=== PATIENT | male | born 1965 | race Caucasian/White ===

== ENCOUNTER 2020-09-08 15:45 | Inpatient (IN) ==
--- OUTSIDE RECORDS SUMMARY | 2020-09-08 15:49 | External Medical Summary | Continuity of Care Document ---
:1965 Author Name Donal Martinez, Provider Address Unavailable Unavailable , Care Team Providers Name Role Phone Donal Martinez, Urology Unavailable [email or web address] Unavailable Unavailable Problems Active medical history not documented Allergies and Adverse Reactions Allergy history not documented Medications Medications not documented Procedures Procedures not documented Immunizations Immunizations not documented Plan of Treatment Planned Observations Planned Goals not documented Results No Known Results Results not documented
[2020-09-08] MEDS ORDERED: MoRPHine SULFATE 4 MG/ML 1 ML CARP\\VIAL IV PRN ×2 (15:54→19:43)
[2020-09-08] MEDS ORDERED: SODIUM CHLORIDE 0.9% 500 ML IV SCH (16:00)
--- NOTE | 2020-09-08 16:13 | Emergency Department Note ---
Impression & Plan Closed fracture of right fibula and tibia, Abnormal ECG ED Provider Note NAME: DEBBIE DOS SANTOS AGE: 54 SEX: M : 1965 ARRIVES VIA: [employer] INFORMANT: Patient, the [employer] crew ED PROVIDER(S): Klaus Cerna DO CHIEF COMPLAINT: Leg pain HPI: The patient is a 54-year-old male who presented to the emergency department for an evaluation after a fall. The patient fell in the [place] while cross- country skiing. He had very severe pain in his right lower extremity to the point where he could not stand. The patient called 911 and he was evaluated initially by the local prehospital personnel. They felt the patient could not ambulate and they were very concerned that the patient was developing hypothermia. Because of the location of where the injury occurred they felt the patient was a candidate for helicopter transport to a facility. Because of weather the patient was diverted to our facility. Medic command was called by the prehospital personnel. The patient was brought to our facility with an isolated right lower extremity injury. He denies having any head injury or neck pain. He has no back pain. He denies having any weakness in the arms. The patient states he has very severe pain in his right lower extremity he localizes the pain to right below the knee and extending into the ankle. He states he has no foot pain. He was wearing specialized shoes that he was wearing at the time. The patient states his pain is moderate to severe. He was treated with fentanyl prior to arrival. ROS: See above HPI for pertinent positives & negatives. A total of 10 systems reviewed and were otherwise negative. PAST MEDICAL HISTORY: See Below PAST SURGICAL HISTORY: See Below FAMILY HISTORY: See Below SOCIAL HISTORY: See Below HOME MEDICATIONS: See Below ALLERGIES: See Below VITALS: See Below PHYSICAL EXAMINATION: GENERAL: The patient is awake and alert. He is somewhat anxious appearing and appears to be in significant pain. EYES: The conjunctivae are clear. The pupils are round and reactive. EARS, NOSE, MOUTH AND THROAT: The nose is without any evidence of any deformity. Mucous membranes are moist. Tongue is midline. NECK: The neck is nontender and supple. RESPIRATORY: Normal respiratory effort is noted there is no evidence of wheezing rhonchi or rales CARDIOVASCULAR: Regular rate and rhythm noted there no murmurs rubs or gallops normal S1 normal S2. GASTROINTESTINAL: The abdomen is soft. Abdomen is nontender. BACK: No midline tenderness or or step-off noted range of motion in flexion extension as well as rotation no signs of muscle spasm noted MUSCULOSKELETAL/EXTREMITIES: There is significant deformity over the mid shaft of the right lower extremity. Pulses are symmetric in both feet. There is no tenderness over the right knee or the right foot. Pain with palpation is noted. SKIN: There is no obvious evidence of any rash. There are no petechiae, pallor or cyanosis noted. NEUROLOGIC: Patient is awake alert and oriented x 3. MEDICAL DECISION MAKING: The patient is a 54-year-old male who presented to the emergency department via [facility] from the scene for an evaluation of a significant right lower extremity injury. The patient was treated with pain medication. He was treated with splinting. He was reevaluated multiple times. I discussed the patient's laboratory and radiographic studies with him. I also discussed his case with the on-call orthopedic physician. I also discussed his case with the on-call [facility] group. They will evaluate the patient in the emergency department for further management and disposition. Triage Nursing notes reviewed. Prior medical records reviewed Vital Signs: reviewed and remarkable for elevated blood pressure. Differential diagnosis: Fracture, subluxation, dislocation, contusion, ligamentous injury, neurovascular, compartment syndrome, rhabdomyolysis, as well as other pathologies. ER treatment provided: See below Diagnostics interpreted by me: ECG: EKG was obtained in the emergency department. My interpretation is normal sinus rhythm at 82 bpm. There was no ectopy. Nonspecific T wave abnormalities were noted. No previous tracing was available. There was no ectopy. Cardiac Monitoring: An order was placed for continuous cardiac monitoring. The monitor shows a rate of 85 bpm with sinus rhythm. Laboratory studies: As stated above and show below. Imaging studies: See below Consultation(s): 1700: I discussed this case with Dr. Saeed who is on-call for orthopedics. He was able to review the films. Likely the patient will be a candidate for operative management tomorrow. 1715: I discussed this case with Iliana who is on-call for the [facility] group. They will evaluate the patient in the emergency department for further management and disposition. Past Med/Surg History Medical History (Updated 09/08/20 @ 19:34 by Sherlyn García PA-C) GERD (gastroesophageal reflux disease) History of gout Surgical History (Updated 09/08/20 @ 17:45 by Sherlyn García PA-C) H/O chest tube placement pneumothorax as teenager Family History (Updated 09/08/20 @ 18:03 by Sherlyn García PA-C) Father Colonic polyp Hypertension Diabetes Mother FH: multiple myeloma Social History (Updated 09/08/20 @ 19:31 by Sherlyn García PA-C) Smoking Status: Never smoker Hx Alcohol Use: Yes (2 drinks a day) Alcohol type: beer and wine Hx Substance Use: No Preferred Language: Lithuanian Feels Safe at Home: Yes Allergies Allergies Allergy/AdvReac Type Severity Reaction Status Date / Time Penicillins Allergy Hives Verified 09/08/20 18:21 Home Meds Home Medications Medication Instructions Recorded Confirmed allopurinol 300 mg PO DAILY 09/08/20 09/08/20 omeprazole 20 mg PO DAILY 09/08/20 09/08/20 Results & Data (ED) Vital Signs Vital Signs - 24 hr 09/08/20 15:45 09/08/20 15:54 09/08/20 15:56 Temperature 37.4 C Temperature Source Oral Pulse Rate 81 81 78 Pulse Rate from SpO2 Sensor 78 Pulse Rhythm Regular Regular Respiratory Rate 13 13 14 Respiratory Effort / Characteristics Non-Labored Spontaneous Respiratory Depth Normal Respiratory Pattern Regular Blood Pressure 184/109 H 184/109 H Blood Pressure Mean 134 134 Pulse Oximetry 96 96 97 Oxygen Delivery Method Room Air Room Air Sepsis Recent Fever Within 48 Hours No Sepsis New/Unexplained Change in Mental Status No Sepsis Action Taken by Nursing No Action Required 09/08/20 16:00 09/08/20 16:04 09/08/20 16:30 Temperature Temperature Source Pulse Rate 82 86 87 Pulse Rate from SpO2 Sensor 81 87 87 Pulse Rhythm Respiratory Rate 16 14 15 Respiratory Effort / Characteristics Respiratory Depth Respiratory Pattern Blood Pressure 167/117 H 163/98 H 154/99 H Blood Pressure Mean 133 119 117 Pulse Oximetry 95 95 94 Oxygen Delivery Method Sepsis Recent Fever Within 48 Hours Sepsis New/Unexplained Change in Mental Status Sepsis Action Taken by Nursing 09/08/20 17:00 09/08/20 17:01 Temperature Temperature Source Pulse Rate 77 75 Pulse Rate from SpO2 Sensor 71 76 Pulse Rhythm Respiratory Rate 12 20 Respiratory Effort / Characteristics Respiratory Depth Respiratory Pattern Blood Pressure 153/93 H Blood Pressure Mean 113 Pulse Oximetry 93 95 Oxygen Delivery Method Sepsis Recent Fever Within 48 Hours Sepsis New/Unexplained Change in Mental Status Sepsis Action Taken by Alf Medications Current Medication List: was personally reviewed by me Laboratory Data Attestation: I reviewed the patient's lab results. Result diagrams: 09/08/20 16:10 09/08/20 16:10 Lab Results 09/08/20 09/08/20 09/08/20 Range/Units 16:10 16:10 16:10 WBC 14.38 H (4.8-10.8) K/uL RBC 4.87 (4.7-6.1) M/uL Hgb 15.0 (14.0-18.0) g/dL Hct 42.2 (42-52) % MCV 86.7 (80-100) fL MCH 30.8 (25-34) pg MCHC 35.5 (32-36) g/dL RDW Std Deviation 42.0 (36.4-46.3) fL RDW Coeff of Tristan 13.4 (11.5-14.5) % Plt Count 170 (130-400) K/uL MPV 10.8 H (7.4-10.4) fL Immature Gran % (Auto) 0.2 % Neut % (Auto) 88.7 % Lymph % (Auto) 7.1 % [place] % (Auto) 3.8 % Eos % (Auto) 0.1 % Baso % (Auto) 0.1 % Neut # (Auto) 12.76 H (1.4-6.5) K/uL Lymph # (Auto) 1.02 L (1.2-3.4) K/uL [place] # (Auto) 0.54 (0.11-0.59) K/uL Eos # (Auto) 0.02 (0-0.5) K/uL Baso # (Auto) 0.01 (0-0.2) K/uL Immature Gran # (Auto) 0.03 H (0.00-0.02) K/uL PT 10.9 (9.0-12.0) Seconds INR 1.0 (0.9-1.1) APTT 25.5 (21.0-31.0) Seconds PTT Ratio 0.9 Sodium 141 (136-145) mmol/L Potassium 3.7 (3.5-5.1) mmol/L Chloride 109 H (98-107) mmol/L Carbon Dioxide 23 (21-32) mmol/L Anion Gap 9.0 (3-11) BUN 21 H (7-18) mg/dl Creatinine 1.18 (0.6-1.4) mg/dl Est Cr Clr Drug Dosing 79.7 ml/min Est GFR ( Amer) 81.2 Est GFR (Non-Af Amer) 70.0 BUN/Creatinine Ratio 17.7 (10-20) Glucose 110 H (70-99) mg/dl Calcium 8.6 (8.5-10.1) mg/dl Total Bilirubin 1.0 (0.2-1) mg/dl AST 33 (15-37) U/L ALT 75 (12-78) U/L Alkaline Phosphatase 78 (45-117) U/L Troponin I 0.034 (0-0.045) ng/ml Total Protein 7.5 (6.4-8.2) gm/dl Albumin 4.2 (3.4-5.0) gm/dl Globulin 3.3 (2.5-4.0) gm/dl Albumin/Globulin Ratio 1.3 (0.9-2) Lipase 68 L (73-393) U/L COVID-19 Eval Order SARS-CoV-2, RNA, NAAT (NEGATIVE) 09/08/20 09/08/20 Range/Units 16:35 16:35 WBC (4.8-10.8) K/uL RBC (4.7-6.1) M/uL Hgb (14.0-18.0) g/dL Hct (42-52) % MCV (80-100) fL MCH (25-34) pg MCHC (32-36) g/dL RDW Std Deviation (36.4-46.3) fL RDW Coeff of Tristan (11.5-14.5) % Plt Count (130-400) K/uL MPV (7.4-10.4) fL Immature Gran % (Auto) % Neut % (Auto) % Lymph % (Auto) % [place] % (Auto) % Eos % (Auto) % Baso % (Auto) % Neut # (Auto) (1.4-6.5) K/uL Lymph # (Auto) (1.2-3.4) K/uL [place] # (Auto) (0.11-0.59) K/uL Eos # (Auto) (0-0.5) K/uL Baso # (Auto) (0-0.2) K/uL Immature Gran # (Auto) (0.00-0.02) K/uL PT (9.0-12.0) Seconds INR (0.9-1.1) APTT (21.0-31.0) Seconds PTT Ratio Sodium (136-145) mmol/L Potassium (3.5-5.1) mmol/L Chloride (98-107) mmol/L Carbon Dioxide (21-32) mmol/L Anion Gap (3-11) BUN (7-18) mg/dl Creatinine (0.6-1.4) mg/dl Est Cr Clr Drug Dosing ml/min Est GFR ( Amer) Est GFR (Non-Af Amer) BUN/Creatinine Ratio (10-20) Glucose (70-99) mg/dl Calcium (8.5-10.1) mg/dl Total Bilirubin (0.2-1) mg/dl AST (15-37) U/L ALT (12-78) U/L Alkaline Phosphatase (45-117) U/L Troponin I (0-0.045) ng/ml Total Protein (6.4-8.2) gm/dl Albumin (3.4-5.0) gm/dl Globulin (2.5-4.0) gm/dl Albumin/Globulin Ratio (0.9-2) Lipase (73-393) U/L COVID-19 Eval Order Covid19 [facility] SARS-CoV-2, RNA, NAAT NEGATIVE (NEGATIVE) Administered Medications Discontinued Medications Sodium Chloride (Nss) 500 mls @ 999 mls/hr IV .Q31M MARY Stop: 09/08/20 16:30 Last Infusion: 09/08/20 17:11 Dose: 0 mls/hr Documented by: [id number] Admin: 09/08/20 16:15 Dose: 999 mls/hr Documented by: [id number] Morphine Sulfate (Morphine Sulfate 4 Mg/Ml 1 Ml Carp\Vial) 4 mg IV Q15M PRN PRN Reason: Pain Stop: 09/22/20 15:53 Last Admin: 09/08/20 16:00 Dose: 4 mg Documented by: [id number] Imaging Data Radiologist's Impression: Patient: DEBBIE DOS SANTOS Admit Date: 09/08/20 MR#: [id number] Address1: [address] Acct ID:[id number] Address2: Date: 1965 [facility] Zip: [place] [address] Age: 54 Location: ED Sex: M Room/Bed: Att Phy: Diagnosis: LEG INJURY Bonnie Phy: Abdulkadir Way MD Service Date: 09/08/20 Fam Phy: Interpreting Phy: Juancho Gama MD Admit Phy: Ordering Phy: Klaus Cerna, cc: ~ RIGHT TIBIA AND FIBULA 2 VIEWS CLINICAL HISTORY: Fall. Skiing injury. FINDINGS: AP and crosstable lateral views of the right tibia and fibula are obtained. No prior studies are available for comparison at the time of dictation. The skeletal structures are well mineralized. There is a displaced spiral fracture of the proximal to mid shaft of the right fibula. There is anterior distraction of the distal fragment by 1.5 cm as well as mild overriding of the fragments. Additionally, there is a comminuted fracture of the distal tibial diaphysis. There is mild apex volar angulation of the fracture fragments as well as overriding of the fragments. There is dorsal displacement of the distal fragment by approximately 7 mm. Vertical lucency through the posterior tibial plafond seen on the lateral view likely represents overlying shadows. Fracture extension to the articular surface is not excluded. The knee and ankle joints are grossly maintained. Overlying soft tissue edema is noted. IMPRESSION: Right tibial and fibular fractures as above. Electronically signed by: Juancho Gama M.D. 09/08/2020 4:36 PM Dictated: 09/08/20 1630 Transcribed: 09/08/20 1630 Patient: DEBBIE DOS SANTOS Admit Date: 09/08/20 MR#: [id number] Address1: [address] Acct ID:[id number] Address2: Date: 1965 [facility] Zip: [place] [address] Age: 54 Location: ED Sex: M Room/Bed: Att Phy: Diagnosis: LEG INJURY Bonnie Phy: Abdulkadir Way MD Service Date: 09/08/20 [facility] Phy: Interpreting Phy: Juancho Gama MD Admit Phy: Ordering Phy: Klaus Cerna, DO cc: ~ SINGLE VIEW CHEST CLINICAL HISTORY: Atypical chest pain. FINDINGS: An AP, portable, upright chest radiograph is obtained. No prior studies are available for comparison at the time of dictation. The examination is degraded by portable technique, apical lordotic positioning, and patient rotation. The cardiomediastinal silhouette is unremarkable. The lungs and pleural spaces are clear. No pneumothorax is seen. The bony thorax is grossly intact. IMPRESSION: No active disease in the chest. ACT 112: Negative or not required by law. Electronically signed by: Juancho Gama M.D. 09/08/2020 5:02 PM Dictated: 09/08/201700 Transcribed: 09/08/201700 Blood Pressure Blood Pressure Findings: Elevated blood pressure Blood Pressure Disposition: further management by hospitalist Discharge Plan Visit Data Chief Complaint: Leg Injury/Pain Stated Complaint: LEG INJURY ED Provider: Klaus Cerna Discharge Problem: Closed fracture of right fibula and tibia, Abnormal ECG Patient Disposition: Being Evaluated by Hospitalist Condition: Good Discharge Instructions Interventions: ED Discharge Assessment Last Done: 09/08/20 19:15 Discharge Problem: Closed fracture of right fibula and tibia Qualifiers: Encounter type: initial encounter Qualified Code(s): S82.201A - Unspecified fracture of shaft of right tibia, initial encounter for closed fracture
[2020-09-08 16:29] LABS: Basophils # (auto) 0.01 K/uL (0-0.2); Basophils % (auto) 0.1 %; Eosinophils # (auto) 0.02 K/uL (0-0.5); Eosinophils % (auto) 0.1 %; Hematocrit (blood only) 42.2 % (42-52); Immature Granulocytes # (auto) 0.03 K/uL (0.00-0.02); Immature Granulocytes % (auto) 0.2 %; Lymphocytes # (auto) 1.02 K/uL (1.2-3.4); Lymphocytes % (auto) 7.1 %; Mean Corpuscular Hemoglobin 30.8 pg (25-34); Mean Corpuscular Hgb Conc 35.5 g/dL (32-36); Mean Corpuscular Volume 86.7 fL (80-100); Mean Platelet Volume 10.8 fL (7.4-10.4); Monocytes # (auto) 0.54 K/uL (0.11-0.59); Monocytes % (auto) 3.8 %; Neutrophils # (auto) 12.76 K/uL (1.4-6.5); Neutrophils % (auto) 88.7 %; Platelet Count 170 K/uL (130-400); RDW Coefficient of Variation 13.4 % (11.5-14.5); Red Blood Count 4.87 M/uL (4.7-6.1); White Blood Count 14.38 K/uL (4.8-10.8)
--- NOTE | 2020-09-08 16:38 | XRay Report ---
RIGHT TIBIA AND FIBULA 2 VIEWS CLINICAL HISTORY: Fall. Skiing injury. FINDINGS: AP and crosstable lateral views of the right tibia and fibula are obtained. No prior studie s are available for comparison at the time of dictation. The skeletal structures are well mineralized . There is a displaced spiral fracture of the proximal to mid shaft of the right fibula. There is ant erior distraction of the distal fragment by 1.5 cm as well as mild overriding of the fragments. Addit ionally, there is a comminuted fracture of the distal tibial diaphysis. There is mild apex volar angu lation of the fracture fragments as well as overriding of the fragments. There is dorsal displacement of the distal fragment by approximately 7 mm. Vertical lucency through the posterior tibial plafond seen on the lateral view likely represents overlying shadows. Fracture extension to the articular eloise face is not excluded. The knee and ankle joints are grossly maintained. Overlying soft tissue edema i s noted. IMPRESSION: Right tibial and fibular fractures as above. Electronically signed by: Juancho Gama M.D. 09/08/2020 4:36 PM
[2020-09-08 16:40] LABS: Partial Thromboplastin Ratio 0.9; Partial Thromboplastin Time 25.5 Seconds (21.0-31.0); Prothrombin Time 10.9 Seconds (9.0-12.0)
[2020-09-08 16:56] LABS: Albumin Level 4.2 gm/dl (3.4-5.0); BUN Creatinine Ratio 17.7 (10-20); Calcium 8.6 mg/dl (8.5-10.1); Creatinine Clr Calc Pharmacy 79.7 ml/min; Est GFR (African American) 81.2; Potassium 3.7 mmol/L (3.5-5.1)
[2020-09-08 17:01] LABS: Albumin Globulin Ratio 1.3 (0.9-2); Globulin 3.3 gm/dl (2.5-4.0); Total Protein 7.5 gm/dl (6.4-8.2); Troponin I 0.034 ng/ml (0-0.045)
--- NOTE | 2020-09-08 17:03 | XRay Report ---
SINGLE VIEW CHEST CLINICAL HISTORY: Atypical chest pain. FINDINGS: An AP, portable, upright chest radiograph is obtained. No prior studies are available for c omparison at the time of dictation. The examination is degraded by portable technique, apical lordoti c positioning, and patient rotation. The cardiomediastinal silhouette is unremarkable. The lungs and pleural spaces are clear. No pneumothorax is seen. The bony thorax is grossly intact. IMPRESSION: No active disease in the chest. ACT 112: Negative or not required by law. Electronically signed by: Juancho Gama M.D. 09/08/2020 5:02 PM
--- NOTE | 2020-09-08 17:45 | History & Physical Report ---
Date of Service September 08, 2020 Assessment & Plan (1) Closed fracture of right fibula and tibia: Pt is 54 y/o M with PMH gout presented to ER with c/o right leg pain after mechanical fall while cross country skiing today XRAY: Right tibial and fibular fractures RLE CT: displaced spiral fracture of the proximal to mid fibular shaft. Comminuted displaced fracture of the distal tibial metadiaphysis with intra- articular extension. Hemorrhage and soft tissue edema overlies the fracture si denice. -pt placed in posterior splint in ER -oxycodone, morphine prn pain -NPO midnight -Pt will need further workup for pre-op clearance -am labs -ortho consult, ER provider contacted ortho and are aware (2) Abnormal ECG: EKG with T wave inversions inferior leads. No prior EKG noted in outpatient [facility] or [facility] records Initial troponin: 0.034 Pt active at baseline without h/o SOB/CP -Repeat EKG in am -Will trend troponin -lipid panel, A1c in am -Consider echo per cardiology recommendations -Cardiology consult for assistance in pre-op clearance (3) Elevated blood pressure reading: BP's elevated in ER Likely related to acute pain Monitor and control pain. may need to consider BP agent if doesn't respond to pain control (4) History of gout: Continue allopurinol DVT Prophylaxis -SCD Full Code as per discussion with pt Follows with Dr Way for routine care Pt was seen and care coordinated with Dr Aquino. See addendum History of Present Illness Chief Complaint: Right Leg pain Primary Care Provider: Abdulkadir Way MD Pt is 54 y/o M with PMH gout presented to ER with c/o right leg pain. Pt was cross country skiing today when he fell inuring right leg. he was unable to ambulate. Pt reports lying in snow for approx 1.5 hours prior to EMS arrival. Pt reports significant leg pain and had some nausea with the pain. Also c/o shaking/shivering. EMS concerned with leg injury and pt may develop hypothermia and transported pt by helicopter. Because of inclement weather pt brought to [facility]. Upon ER arrival pt normothermic and vitals stable. Pt denies hitting head, CP, SOB, palpitations, dizziness. Denies any other injury or complaint. In ER received pain medication and now reports pain 2/10 on pain scale. Pt is active a baseline and runs several miles a week, hikes and uses elliptical without any h/o CP or SOB. Denies fever. diaphoresis, N/V/D/C, SHOOK, dizziness, syncope, vision changes, neck pain, orthopnea, cough, sore throat, choking, otalgia, rhinorrhea, abdominal pain, paresthesias, extremity edema, rashes, urinary symptoms. Allergies Allergy/AdvReac Type Severity Reaction Status Date / Time Penicillins Allergy Hives Verified 09/08/20 18:21 Home Medications Medication Instructions Recorded Confirmed Type allopurinol 300 mg PO DAILY 09/08/20 09/08/20 History omeprazole 20 mg PO DAILY 09/08/20 09/08/20 History Past Med/Surg History Medical History (Updated 09/08/20 @ 19:34 by Sherlyn García PA-C) GERD (gastroesophageal reflux disease) History of gout Surgical History (Updated 09/08/20 @ 17:45 by Sherlyn García PA-C) H/O chest tube placement pneumothorax as teenager Family History (Updated 09/08/20 @ 18:03 by Sherlyn García PA-C) Father Colonic polyp Hypertension Diabetes Mother FH: multiple myeloma Social History (Updated 09/08/20 @ 19:31 by Sherlyn García PA-C) Smoking Status: Never smoker Hx Alcohol Use: Yes (2 drinks a day) Alcohol type: beer and wine Hx Substance Use: No Preferred Language: Tajik Feels Safe at Home: Yes Review of Systems Review of Systems: All systems reviewed & are unremarkable except as noted in HPI & below Physical Exam Physical Exam: General: no distress, WDWN Head: normocephalic, atraumatic Eyes: PERRL, EOM's intact, conjunctiva non-injected, anicteric ENT: normal inspection external ears, nose, mucous membranes moist Neck: supple, trachea midline Lungs: clear, no respiratory distress, no wheezing/rhonchi/rales CV: RRR, no murmur, no pretibial edema to left leg noted Abd: normal BS, soft, non-tender Back: no discoloration, non-tender to palpation Ext: Right lower leg in posterior splint. brisk capillary refill and sensation to light touch intact of visible right great toe. Remaining extremities with normal appearance and ROM intact Neuro: A&O x 3, no focal deficits noted, normal affect Skin: warm, dry Results & Data Results & Data ([facility]) Vital Signs (Past 12 Hours) Vital Signs Temp Pulse Resp BP Pulse Ox 09/08/20 17:01 75 20 95 09/08/20 17:00 77 12 153/93 H 93 09/08/20 16:30 87 15 154/99 H 94 09/08/20 16:04 86 14 163/98 H 95 09/08/20 16:00 82 16 167/117 H 95 09/08/20 15:56 78 14 184/109 H 97 09/08/20 15:54 81 13 96 09/08/20 15:45 37.4 C 81 13 184/109 H 96 Laboratory Results Short CBC 09/08/20 Range/Units 16:10 WBC 14.38 H (4.8-10.8) K/uL Hgb 15.0 (14.0-18.0) g/dL Hct 42.2 (42-52) % Plt Count 170 (130-400) K/uL BMP 09/08/20 16:10 Sodium 141 Potassium 3.7 Chloride 109 H Carbon Dioxide 23 BUN 21 H Creatinine 1.18 Glucose 110 H Calcium 8.6 Cardiac Enzymes 09/08/20 Range/Units 16:10 Troponin I 0.034 (0-0.045) ng/ml Liver Function 09/08/20 Range/Units 16:10 Total Bilirubin 1.0 (0.2-1) mg/dl AST 33 (15-37) U/L ALT 75 (12-78) U/L Alkaline Phosphatase 78 (45-117) U/L Albumin 4.2 (3.4-5.0) gm/dl Diagnostic Findings RIGHT TIB/FIB XRAY: IMPRESSION: Right tibial and fibular fractures RLE CT: IMPRESSION: 1. There is a displaced spiral fracture of the proximal to mid fibular shaft. 2. Comminuted displaced fracture of the distal tibial metadiaphysis with intra- articular extension as detailed above. 3. Hemorrhage and soft tissue edema overlies the fracture sites. CXR: IMPRESSION: No active disease in the chest. ECG Rhythm: sinus rhythm Findings: + T-wave inversion (Inferior) Supervising Physician Co-Signing Physician Notes 54-year-old man with history of gout who was brought to the ER after skiing accident where he fell and laid in the snow for over an hour. History as detailed above Physical exam notable for right lower extremity bandage Lab work notable for WBC of 14,[address] showed displaced spiral fracture of proximal to mid fibular shaft as well as comminuted displaced fracture of distal tibia metadiaphysis -Right tibia and fibula fractures following a skiing accident Leukocytosis likely reactive EKG showed T wave inversion in inferior leads. Patient does not have any cardiac history. This may be due to demand following accident and laying in the snow for some time Trend troponin, serial EKG and phototypesetting equipment monitor Get A1c and lipid panel to assess the risk factors May need cardiology evaluation prior to or in a.m. Orthopedic consult for fracture management Pain control Other plans as detailed above (1) Closed fracture of right fibula and tibia Encounter type: initial encounter Qualified Code(s): S82.201A - Unspecified fracture of shaft of right tibia, initial encounter for closed fracture; S82.401A - Unspecified fracture of shaft of right fibula, initial encounter for closed fracture
--- NOTE | 2020-09-08 18:23 | CT Scan Report ---
CT SCAN OF THE RIGHT TIBIA AND FIBULA WITHOUT IV CONTRAST CLINICAL HISTORY: Tibial and fibular fractures. COMPARISON STUDY: Radiographs of the right tibia and fibula dated 09/08/2020. TECHNIQUE: CT scan of the right tibia and fibula is performed from the distal femur to the foot. Imag es are reviewed in the axial, sagittal, and coronal planes. IV contrast was not administered for this examination. 3-D reformats are created and assessed. A dose lowering technique was utilized adhering to the principles of ALARA. CT DOSE: 439.06 mGy.cm FINDINGS: The skeletal structures are well mineralized. There is a comminuted and displaced spiral fr acture of the proximal to mid fibular shaft. There is anterior displacement of the distal fragments b y up to 9 mm, as well as mild overriding of the fragments. Additionally, there is a comminuted and di splaced spiral fracture of the distal tibial metadiaphysis with small displaced fragments. There is a pproximately 1.4 cm of lateral displacement of the distal shaft, as well as overriding of the largest fragments by at least 10 mm. There is a subtle nondisplaced vertical component of the fracture which extends inferiorly through the posterior tibial plafond with intra-articular extension. This is best seen on sagittal image #66. Imaged portions of the distal femur are intact, as are the visualized ta rsal bones. The ankle mortise is maintained. There is an ankle joint effusion. Hemorrhage and soft ti ssue edema is seen around the fractures. No large/organized hematoma is identified. The knee joint is grossly preserved. The Achilles tendon is intact as visualized. IMPRESSION: 1. There is a displaced spiral fracture of the proximal to mid fibular shaft. 2. Comminuted displaced fracture of the distal tibial metadiaphysis with intra-articular extension as detailed above. 3. Hemorrhage and soft tissue edema overlies the fracture sites. ACT 112: Positive. There are findings on this exam that require communication between the performing entity and the patient following Patient Test Result Information Act ([place] Act 112) guidelines. Electronically signed by: Juancho Gama M.D. 09/08/2020 6:22 PM
[2020-09-08] MEDS ORDERED: ONDANSETRON INJ 2 MG/ML 2 ML VIAL IV PRN ×2 (19:43)
[2020-09-08] MEDS ORDERED: MAGNESIUM HYDROXIDE SUSP 30 ML UDC PO PRN (19:43)
[2020-09-08] MEDS ORDERED: POLYETHYLENE (MIRALAX) 17 GM PACK PO PRN (19:43)
[2020-09-08] MEDS ORDERED: NALOXONE HCL 0.4 MG/1 ML VIAL/CARP IV PRN (19:43)
[2020-09-08] MEDS ORDERED: ACETAMINOPHEN 325 MG TAB PO PRN (19:43)
[2020-09-08] MEDS ORDERED: bisacodyL 10 MG SUPP PR PRN (19:43)
[2020-09-08] MEDS ORDERED: MoRPHine SULFATE 4 MG/ML 1 ML CARP\\VIAL ONE (19:49)
[2020-09-08] MEDS: DOCUSATE SODIUM/SENNA 50/8.6MG TAB PO SCH (22:47)
[2020-09-09] MEDS: oxyCODONE HCL IR 5 MG TAB (IMMEDIATE RELEASE) PO PRN ×5 (00:23→20:38)
[2020-09-09 04:15] LABS: Basophils # (auto) 0.02 K/uL (0-0.2); Basophils % (auto) 0.3 %; Eosinophils # (auto) 0.06 K/uL (0-0.5); Eosinophils % (auto) 0.9 %; Hematocrit (blood only) 37.2 % (42-52); Hemoglobin 13.2 g/dL (14.0-18.0); Lymphocytes # (auto) 1.67 K/uL (1.2-3.4); Lymphocytes % (auto) 24.6 %; Mean Corpuscular Hemoglobin 31.1 pg (25-34); Mean Corpuscular Hgb Conc 35.5 g/dL (32-36); Mean Corpuscular Volume 87.5 fL (80-100); Mean Platelet Volume 10.8 fL (7.4-10.4); Monocytes # (auto) 0.74 K/uL (0.11-0.59); Monocytes % (auto) 10.9 %; Neutrophils # (auto) 4.31 K/uL (1.4-6.5); Neutrophils % (auto) 63.3 %; Platelet Count 182 K/uL (130-400); RDW Coefficient of Variation 13.7 % (11.5-14.5); RDW Standard Deviation 43.5 fL (36.4-46.3); Red Blood Count 4.25 M/uL (4.7-6.1)
[2020-09-09 04:35] LABS: BUN Creatinine Ratio 15.2 (10-20); Calcium 8.2 mg/dl (8.5-10.1); Creatinine Clr Calc Pharmacy 77.1 ml/min; Est GFR (Non-African American) 67.3; Potassium 3.9 mmol/L (3.5-5.1)
[2020-09-09] MEDS ORDERED: CLINDAMYCIN 900 MG in DEXTROSE 5% 50 ML IV SCH (06:00)
[2020-09-09 06:20] LABS: Estimated Average Glucose 100 mg/dl; Hemoglobin A1C 5.1 % (4.5-5.6)
[2020-09-09] MEDS: allopurinoL 300 MG TAB PO SCH (07:28)
[2020-09-09] MEDS: PANTOprazole 40 MG TAB PO SCH (07:28)
--- NOTE | 2020-09-09 09:37 | Cardiology Consultation ---
Date of Consultation September 09, 2020 Assessment & Plan (1) Preop cardiovascular exam: (2) Abnormal ECG: (3) PSVT (paroxysmal supraventricular tachycardia): (4) Elevated blood pressure readin54 year old male admitted with mechanical fall with resultant tibial/fibula fracture as described above. Cardiovascular concerns regarding resting twelve-lead ECG demonstrating nonspecific T wave abnormality. No prior ECG for comparison. Functional capacity is above average (greater than 7 METS per history) without anginal symptoms. Resting 2D transthoracic echocardiogram ordered for evaluation of resting left ventricular function and valvular integrity. If echocardiogram without significant abnormality, patient may proceed with orthopedic surgery. Based on functional capacity and lack of anginal symptoms he is considered low risk for perioperative cardiovascular complications if echocardiogram within normal limits. Monitor telemetry postoperatively due to evidence of short, nonsustained nanci of paroxysmal supraventricular tachycardia recorded this a.m. TSH and serum magnesium level ordered. No medication changes at this time. Thank you for allow me to participate in the care of your patient. I will continue to follow during hospitalization. History of Present Illness Reason for Consultation: Preoperative cardiovascular evaluation. Abnormal resting ECG. Requesting Physician: Dr. Marsh Attending Physician: Veronica Marsh MD History of Present Illness 54-year-old patient presents to the ER with mechanical fall. Cross-country skiing in the [employer] [facility]. Ski became caught and he fell to the ground with resultant tibial/fibula fracture. He was brought to the ER for further evaluation and treatment. CT confirms displaced spiral fracture of the proximal mid fibular shaft, commuted displaced fracture of the distal tibial metadiaphysis with intra-articular extension. Right lower extremity pain controlled. Patient denies chest discomfort or unusual shortness of breath. Exercises regularly. 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 Function capacity is stable. No palpitations, lightheadedness, dizziness, syncope, or near syncope. Denies orthopnea, PND, lower extremity edema, or claudication. No history of diabetes, hypertension, coronary disease, congestive heart failure, rheumatic fever as a child. No prior ECG on record. Currently resting comfortably. Voices concern regarding family history of atrial fibrillation. Telemetry demonstrates sinus rhythm/sinus bradycardia with an isolated 7 beat nanci of paroxysmal supraventricular tachycardia this a.m. Blood pressure mildly elevated since admission. 2D transthoracic echocardiogram pending. Allergies Allergy/AdvReac Type Severity Reaction Status Date / Time Penicillins Allergy Hives Verified 09/08/20 18:21 Home Medications Medication Instructions Recorded Confirmed Type allopurinol 300 mg PO DAILY 09/08/20 09/08/20 History omeprazole 20 mg PO DAILY 09/08/20 09/08/20 History Patient History Medical History GERD (gastroesophageal reflux disease) History of gout Surgical History H/O chest tube placement pneumothorax as teenager Family History Father Colonic polyp Hypertension Diabetes Mother FH: multiple myeloma Social History Smoking Status: Unknown if ever smoked Second Hand Exposure: No; Do You Dip or Chew Tobacco: No; Tobacco Cessation Education Requested by Patient: No Hx Alcohol Use: No Hx Substance Use: No Preferred Language: [place] Communication Ability: Effective Furnace Filler Required: No Beliefs That Will Affect Care: None marital status: Current Living Situation: Alone Other Information That Helps Us Care for You: No Feels Safe at Home: No Is there a partner from a previous relationship who is making you feel unsafe now?: No Any Concerns about Your Family Situation: No Would You Like to Speak to Someone About Your Situation: No Assistive Devices: Glasses Review of Systems Review of Systems: All systems reviewed & are unremarkable except as noted in Subjective Physical Exam Constitutional: well developed and well nourished; no acute distress Neck: trachea midline; no neck crepitus Respiratory: normal respiratory effort; no respiratory distress, no labored br eathing, no retractions and does not use accessory muscles Auscultation: lungs clear to auscultation bilaterally; no crackles, no rales, no rhonchi and no wheezes Cardiovascular: Rate/Rhythm: regular rate and regular rhythm Heart Sounds: normal S1 and normal S2; no gallop, no murmur and no cardiac rub Vessels: no JVD and no carotid bruit Extremities: no edema Gastrointestinal (Abdomen): Inspection/Auscultation: abdomen normal to inspection and normal bowel sounds; abdomen not distended Percussion/Palpation: abdomen soft; abdomen nontender, no guarding and abdomen not rigid Musculoskeletal: Right lower extremity knee and ankle immobilizer with compression, maddy wrap. Neurologic: CN's II-XI intact bilaterally; no focal motor deficits Motor/Sensory: no tremor Psychiatric: A+Ox3, euthymic affect Results & Data ([facility]) Vital Signs (Past 12 Hours) Vital Signs Temp Pulse Resp BP Pulse Ox 09/09/20 08:23 36.8 C 69 20 152/88 H 94 09/09/20 03:05 36.9 C 77 18 128/79 95 09/08/20 22:59 37.2 C 76 18 133/83 95 ECG Additional Comments: Sinus rhythm. Nonspecific T wave abnormality.
[2020-09-09 10:48] LABS: Magnesium 2.3 mg/dl (1.8-2.4); Thyroid Stimulating Hormone 2.4 uIu/ml (0.300-4.500)
--- NOTE | 2020-09-09 11:17 | Electrocardiogram Report ---
Test Reason : Blood Pressure : / mmHG Vent. Rate : 082 BPM Atrial Rate : 082 BPM P-R Int : 160 ms QRS Dur : 084 ms QT Int : 378 ms P-R-T Axes : 059 057 -04 degrees QTc Int : 441 ms Normal sinus rhythm Possible Left atrial enlargement T wave abnormality, consider inferior ischemia Abnormal ECG No previous ECGs available Confirmed by Francisco Gallegos ([id number]) on 09/09/2020 11:17:04 AM Referred By: Confirmed By:Ulises Gallegos
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
--- NOTE | 2020-09-09 11:29 | Electrocardiogram Report ---
Test Reason : Blood Pressure : / mmHG Vent. Rate : 064 BPM Atrial Rate : 064 BPM P-R Int : 172 ms QRS Dur : 086 ms QT Int : 398 ms P-R-T Axes : 052 059 -01 degrees QTc Int : 410 ms Normal sinus rhythm Nonspecific T wave abnormality Abnormal ECG When compared with ECG of 08-SEP-2020 16:07, (unconfirmed) No significant change was found Confirmed by Francisco Gallegos ([id number]) on 09/09/2020 11:28:38 AM Referred By: REFERRED SELF Confirmed By:Ulises Gallegos
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
[2020-09-09] MEDS ORDERED: HYDROmorphone INJ 2 MG/ML SYR/VIAL IV PRN (19:40)
[2020-09-09] MEDS: DOCUSATE SODIUM/SENNA 50/8.6MG TAB PO SCH (20:39)
[2020-09-10] MEDS: KETOROLAC 30 MG/ML VIAL IV PRN ×2 (02:16→20:03)
[2020-09-10] MEDS: POLYETHYLENE (MIRALAX) 17 GM PACK PO SCH (07:54)
[2020-09-10] MEDS: allopurinoL 300 MG TAB PO SCH (07:55)
[2020-09-10] MEDS: PANTOprazole 40 MG TAB PO SCH (07:55)
--- NOTE | 2020-09-10 10:52 | Cardiology Progress Note ---
Date of Service September 10, 2020 Assessment & Plan (1) Preop cardiovascular exam: (2) Abnormal ECG: (3) PSVT (paroxysmal supraventricular tachycardia): (4) Elevated blood pressure readin54 year old male admitted with mechanical fall with resultant tibial/fibula fracture as described above. Functional capacity is above average (greater than 7 METS per history) without anginal symptoms. Resting 2D transthoracic essentially normal. Patient may proceed with orthopedic surgery. Based on functional capacity and lack of anginal symptoms he is considered low risk for perioperative cardiovascular complications. Monitor telemetry postoperatively due to evidence of short, nonsustained nanci of paroxysmal supraventricular tachycardia recorded this a.m. electrolytes, renal function, and thyroid function testing within normal limits. Recommend addition of DVT prophylaxis if no contraindication from a orthopedic perspective. Admission and Anticipated Discharge Date Admission Date: September 08, 2020 Subjective Patient seen and examined at the bedside. Right lower extremity pain controlled. Telemetry demonstrates isolated 7 beat nanci of paroxysmal atrial tachycardia last night. No associated symptoms. Denies chest discomfort or unusual shortness of breath. No orthopnea, PND, or palpitations. Review of Systems Review of Systems: All systems reviewed & are unremarkable except as noted in Subjective Physical Exam Constitutional: WD/WN, vitals as above well developed and well nourished; no acute distress Respiratory: normal respiratory effort, lungs clear to auscultation normal respiratory effort; no respiratory distress, no labored breathing, no retractions and does not use accessory muscles Auscultation: lungs clear to auscultation bilaterally; no crackles, no rales, no rhonchi and no wheezes Cardiovascular: RRR, no murmur, no edema Rate/Rhythm: regular rate and regular rhythm Heart Sounds: normal S1 and normal S2; no gallop, no murmur and no cardiac rub Vessels: no JVD and no carotid bruit Extremities: no edema Gastrointestinal (Abdomen): normal bowel sounds, soft, nontender, no hepatosplenomegaly Inspection/Auscultation: abdomen normal to inspection and normal bowel sounds; abdomen not distended Percussion/Palpation: abdomen soft; abdomen nontender, no guarding and abdomen not rigid Skin: no rashes, warm and dry Neurologic: PERRL, EOMI, accommodation nl, no face palsy, no dysarthria CN's II-XI intact bilaterally; no focal motor deficits Motor/Sensory: no tremor Psychiatric: A+Ox3, euthymic affect Results & Data ([facility]) Vital Signs (Past 12 Hours) Vital Signs Temp Pulse Resp BP Pulse Ox 09/10/20 07:46 36.7 C 65 18 120/78 95 09/10/20 03:31 36.8 C 60 17 121/77 95 09/09/20 23:00 37.1 C 81 16 132/83 92
--- NOTE | 2020-09-10 12:14 | Orthopedic Progress Note ---
Date of Service September 10, 2020 Assessment & Plan Admission and Anticipated Discharge Date Admission Date: September 08, 2020 Continue current plan for now. Maintain strict elevation and icing at this point. May be out of bed to BSC/bathroom NWB RLE if tolerating. Continue current pain control. Planning for ORIF of the distal tibia fracture this Wednesday if swelling has dissipated. Supervising Physician Co-Signing Physician Notes Agree with examination and assessment as entered by Mary Headley above. Patient seen and examined. No current complaints. Examination stable and benign in splint. DNVSI. All questions answered. Plan for ORIF on Wednesday if swelling continues to morris. David Saeed DO Subjective Patient sitting up in the bed starting to eat his lunch. No complaints at this time. Pain is controlled at rest. States he might try and get up to use the restroom today. Patient states that Dr. Saeed called him this morning and talked to him at length about his fracture and treatment. Patient states that he understands the plan and has no questions at this time. Physical Exam Physical Exam: Splint is clean, dry, and intact. Toes are mobile. Sensation is intact. Cap refill is less than 2 seconds. Passive dorsiflexion of the great toe does not cause pain in the right lower extremity. He states he can feel the stretch but is not painful. Extremity is elevated up on 2 pillows and ice packs are at the distally and proximally. Results & Data ([facility]) Vital Signs (Past 12 Hours) Vital Signs Temp Pulse Resp BP Pulse Ox 09/10/20 11:35 36.9 C 71 18 137/84 96 09/10/20 07:46 36.7 C 65 18 120/78 95 09/10/20 03:31 36.8 C 60 17 121/77 95
--- NOTE | 2020-09-10 17:06 | Hospitalist Progress Note ---
Date of Service September 10, 2020 Assessment & Plan (1) Closed fracture of right fibula and tibia: traumatic injury leading to fall and right lower extremity fracture while Cross country skiing at [facility] pt reports he lost balance on a slop and landed on his right leg and foot pt later airlifted to [facility] RLE CT: displaced spiral fracture of the proximal to mid fibular shaft. Comminuted displaced fracture of the distal tibial metadiaphysis with intra-articular extension. Hemorrhage and soft tissue edema overlies the fracture sites. appreciate input from Orthopedics pt will need surgical procedure /ORIF for complex fracture bed rest , with keep right leg elevated with pillows to improved soft tissue swelling had a detail discussion with Orthopedics plan for ORIF procedure on Wednesday /pt wants to have the procedure done at [facility] will remains admitted at [facility] till procedure leg /foot pain adequately controlled pt reports better pain relief with PRN IV toradol will D/c Iv Dilaudid , prn oxycodone for breakthrough pain /if no relief with Iv NSAID/Toradol (2) Abnormal ECG: EKG with T wave inversions inferior leads. No prior EKG noted in outpatient [facility] or [employer] records possible due to hypothermia ? [place] the [place]5 hr before air medic able to evacuate him no complain of chest pain or sob resting ECHO -normal study /short burst of SVT noted on monitor for 6-11 sec pt remains asymptomatic Pt should be on tele monitor before and after orthopedic procedure appreciate input from Cardiology pt is low risk for surgery , no other test or intervention needed Full code DVT prophylaxis ; moderate to high risk , right leg fx on immobilizer per Ortho : high risk of bleeding , hematoma at the tibia fracture site with full antiplatelet therapy for DVT prophylaxis avoid SC heparin , Lovenox low dose Asprin 81 mg daily , hold 24 hrs per op full anticoagulation will be ordered by Ortho team post op as per protocol Plan of care discussed with Patient and his all questions answered Admission and Anticipated Discharge Date Admission Date: September 08, 2020 Subjective Pt awake,alert. No complaints this AM. Pain controlled. Review of Systems Review of Systems: All systems reviewed & are unremarkable except as noted in Subjective Physical Exam Constitutional: WD/WN, vitals as above Eyes: PERRL, conjunctivae normal, anicteric sclerae ENMT: external ear and nose normal, oropharynx normal Neck: trachea midline, no thyromegaly Respiratory: normal respiratory effort, lungs clear to auscultation Cardiovascular: RRR, no murmur, no edema Gastrointestinal (Abdomen): normal bowel sounds, soft, nontender, no hepatosplenomegaly Skin: no rashes, warm and dry Neurologic: PERRL, EOMI, accommodation nl, no face palsy, no dysarthria Psychiatric: A+Ox3, euthymic affect Results & Data Results & Data ([facility]) Vital Signs (Past 12 Hours) Vital Signs Temp Pulse Pulse Resp BP Pulse Ox 09/10/20 15:58 37.0 C 76 18 129/83 93 09/10/20 15:45 68 09/10/20 11:35 36.9 C 71 18 137/84 96 09/10/20 07:46 36.7 C 65 18 120/78 95 (1) Closed fracture of right fibula and tibia Encounter type: initial encounter Qualified Code(s): S82.201A - Unspecified fracture of shaft of right tibia, initial encounter for closed fracture; S82.401A - Unspecified fracture of shaft of right fibula, initial encounter for closed fracture
[2020-09-10] MEDS: ASPIRIN 81 MG ECTAB PO SCH (18:13)
[2020-09-10] MEDS: DOCUSATE SODIUM/SENNA 50/8.6MG TAB PO SCH (20:06)
[2020-09-11] MEDS: ASPIRIN 81 MG ECTAB PO SCH (08:09)
[2020-09-11] MEDS: POLYETHYLENE (MIRALAX) 17 GM PACK PO SCH (08:09)
[2020-09-11] MEDS: allopurinoL 300 MG TAB PO SCH (08:09)
[2020-09-11] MEDS: PANTOprazole 40 MG TAB PO SCH (08:09)
[2020-09-11 10:07] LABS: Basophils # (auto) 0.01 K/uL (0-0.2); Basophils % (auto) 0.2 %; Eosinophils # (auto) 0.06 K/uL (0-0.5); Hematocrit (blood only) 36.4 % (42-52); Immature Granulocytes # (auto) 0.01 K/uL (0.00-0.02); Immature Granulocytes % (auto) 0.2 %; Lymphocytes # (auto) 0.85 K/uL (1.2-3.4); Lymphocytes % (auto) 14.3 %; Mean Corpuscular Hemoglobin 31.3 pg (25-34); Mean Corpuscular Hgb Conc 35.7 g/dL (32-36); Mean Corpuscular Volume 87.5 fL (80-100); Mean Platelet Volume 10.3 fL (7.4-10.4); Monocytes # (auto) 0.51 K/uL (0.11-0.59); Monocytes % (auto) 8.6 %; Neutrophils % (auto) 75.7 %; Platelet Count 156 K/uL (130-400); RDW Coefficient of Variation 13.1 % (11.5-14.5); RDW Standard Deviation 42.4 fL (36.4-46.3); Red Blood Count 4.16 M/uL (4.7-6.1); White Blood Count 5.94 K/uL (4.8-10.8)
[2020-09-11 10:33] LABS: BUN Creatinine Ratio 20.3 (10-20); Calcium 8.8 mg/dl (8.5-10.1); Est GFR (African American) 79.5; Est GFR (Non-African American) 68.6; Potassium 3.8 mmol/L (3.5-5.1)
--- NOTE | 2020-09-11 10:45 | Orthopedic Progress Note ---
Date of Service September 11, 2020 Assessment & Plan (1) Closed fracture of right fibula and tibia: No changes to the current plan. Continue current pain regimen. Pain is controlled. Continue strict elevation and ice to the affected area. Patient can be out of bed to the bathroom with crutches nonweightbearing on the right lower extremity. Patient currently on low-dose aspirin which will be discontinued after today. Plan for ORIF of distal tibia fracture on Wednesday09/13/20 Admission and Anticipated Discharge Date Admission Date: September 08, 2020 Subjective Patient sitting up in bed reading. Right lower extremity is elevated on 2 pillows. Patient states that he got out of bed this morning for the first time and it went well. He use the immobilizer on his knee which he felt helped. He feels he can get into the bathroom with crutches. Pain is controlled. No other complaints at this time. Physical Exam Physical Exam: Splint is intact. Lower section of his splint is unwrapped to see how his swelling is. It feels a little bit softer to be that today than co mpared to few days ago. He still has swelling that travels distally the dorsum of the foot but does not appear to have worsened. A skin blister is noted over the medial aspect of the leg near the fracture site that is approximately 2 cm in width and 3 cm in length. This is left intact. I cannot appreciate any other skin blisters noted at this time. He has good dorsalis pedis pulse and his cap refill is less than 2 seconds. Sensation is intact and he is moving his toes well. He has not noted any changes. Splint was then rewrapped and ice was placed on top of the fracture area. Results & Data ([facility]) Vital Signs (Past 12 Hours) Vital Signs Temp Pulse Pulse Resp BP BP Pulse Ox 09/11/20 08:10 62 09/11/20 07:31 36.8 C 70 22 132/83 95 09/11/20 03:15 36.6 C 65 14 130/80 98 09/11/20 00:00 64 09/10/20 23:42 36.8 C 70 15 144/84 H 96 (1) Closed fracture of right fibula and tibia Encounter type: initial encounter Qualified Code(s): S82.201A - Unspecified fracture of shaft of right tibia, initial encounter for closed fracture; S82.401A - Unspecified fracture of shaft of right fibula, initial encounter for closed fracture
--- NOTE | 2020-09-11 16:09 | Hospitalist Progress Note ---
Date of Service September 11, 2020 Assessment & Plan (1) Closed fracture of right fibula and tibia: (1) Closed fracture of right fibula and tibia: Traumatic injury leading to fall and right lower extremity fracture while Cross country skiing at [facility] pt reports he lost balance on a slop and landed on his right leg and foot pt later airlifted to [facility] RLE CT: displaced spiral fracture of the proximal to mid fibular shaft. Comminuted displaced fracture of the distal tibial metadiaphysis with intra-articular extension. Hemorrhage and soft tissue edema overlies the fracture sites. stable overall Hg stable pain well controlled awaiting surgery scheduled on Wednesday continue PRN analgesics hold ASA for DVT prophylaxis in light of planned surgery for Wednesday (2) Abnormal ECG: per Dr. Marsh notes: EKG with T wave inversions inferior leads. No prior EKG noted in outpatient [employer] or [employer] records possible due to hypothermia ? pt was on the [place] trail [place] 1.5 hr before air medic able to evacuate him resting ECHO -normal study telemetry: no arrythmia so far appreciate input from Cardiology- no contraindications for surgery Full code Disposition pending will need PT/OT evaluation post surgery Admission and Anticipated Discharge Date Admission Date: September 08, 2020 Subjective ff up for Right Tib/Fib fracture etc seen resting in bed, sitting up in bed, comfortable states RLE pain is well controlled denies headache, dizziness, chest pain, dyspnea, palpitations no abdominal pain, nausea/vomiting denies other symptoms Review of Systems Review of Systems: All systems reviewed & are unremarkable except as noted in Subjective Physical Exam Physical Exam: General- oriented x 3, not in distress, speaks in sentences with no effort or accessory muscle use Eyes- anicteric Neck- no JVD Lungs- clear breath sounds bilaterally, no rales/wheezes Heart- normal rate, regular rhythm; no murmurs Abdomen- normal bowel sounds, nondistended, soft, nontender Extremities- RLE cast in place, can move toes/no edema no pretibial edema, no calf tenderness Neuro- alert, oriented x 3; no gross focal neurologic deficits Skin- warm & dry Results & Data Results & Data ([facility]) Vital Signs (Past 12 Hours) Vital Signs Temp Pulse Pulse Resp BP BP Pulse Ox 09/11/20 15:21 37.1 C 73 20 134/89 147/86 H 93 09/11/20 11:00 37.2 C 74 20 131/81 96 09/11/20 08:10 62 09/11/20 07:31 36.8 C 70 22 132/83 95 Laboratory Results Laboratory Results - last 24 hr 09/11/20 09/11/20 09:59 09:59 WBC 5.94 RBC 4.16 L Hgb 13.0 L Hct 36.4 L MCV 87.5 MCH 31.3 MCHC 35.7 RDW Std Deviation 42.4 RDW Coeff of Tristan 13.1 Plt Count 156 MPV 10.3 Immature Gran % (Auto) 0.2 Neut % (Auto) 75.7 Lymph % (Auto) 14.3 Dupage % (Auto) 8.6 Eos % (Auto) 1.0 Baso % (Auto) 0.2 Neut # (Auto) 4.50 Lymph # (Auto) 0.85 L Dupage # (Auto) 0.51 Eos # (Auto) 0.06 Baso # (Auto) 0.01 Immature Gran # (Auto) 0.01 Sodium 140 Potassium 3.8 Chloride 109 H Carbon Dioxide 25 Anion Gap 6.0 BUN 24 H Creatinine 1.20 Est Cr Clr Drug Dosing 78.0 Est GFR ( Amer) 79.5 Est GFR (Non-Af Amer) 68.6 BUN/Creatinine Ratio 20.3 H Glucose 121 H Calcium 8.8 (1) Closed fracture of right fibula and tibia Encounter type: initial encounter Qualified Code(s): S82.201A - Unspecified fracture of shaft of right tibia, initial encounter for closed fracture; S82.401A - Unspecified fracture of shaft of right fibula, initial encounter for closed fracture
[2020-09-11] MEDS: KETOROLAC 30 MG/ML VIAL IV PRN (20:30)
[2020-09-11] MEDS: DOCUSATE SODIUM/SENNA 50/8.6MG TAB PO SCH (20:31)
[2020-09-12] MEDS: PANTOprazole 40 MG TAB PO SCH (08:18)
[2020-09-12] MEDS: allopurinoL 300 MG TAB PO SCH (08:18)
[2020-09-12] MEDS: POLYETHYLENE (MIRALAX) 17 GM PACK PO SCH (08:19)
--- NOTE | 2020-09-12 10:45 | Orthopedic Progress Note ---
Date of Service September 12, 2020 Assessment & Plan (1) Closed fracture of right fibula and tibia: Plan for OR tomorrow for ORIF tibia NPO after midnight Admission and Anticipated Discharge Date Admission Date: September 08, 2020 Subjective Pt awake,alert. No complaints this AM. Pain controlled. Physical Exam Physical Exam: Splint intact. RLE elevated up on 2 pillows. Toes pink and warm. Toes mobile. Sensation intact. Vivek wrap removed on lower portion of splint to examine skin/fx site. Less swelling noted over the dorsum of the foot. Swelling around the fx site is softer today and appears a bit less. Blister on medial side as noted before. Still intact. Splint rewrapped. Results & Data ([facility]) Vital Signs (Past 12 Hours) Vital Signs Temp Pulse Pulse Resp BP Pulse Ox Pulse Ox 09/12/20 08:00 49 L 98 09/12/20 07:29 36.9 C 70 18 123/77 94 09/12/20 04:55 36.9 C 63 18 129/88 96 09/11/20 23:01 71 09/11/20 22:31 37.2 C 69 16 136/72 95 (1) Closed fracture of right fibula and tibia Encounter type: initial encounter Qualified Code(s): S82.201A - Unspecified fracture of shaft of right tibia, initial encounter for closed fracture; S82.401A - Unspecified fracture of shaft of right fibula, initial encounter for closed fracture
--- NOTE | 2020-09-12 13:58 | Anesthesiology Consultation ---
Date of Service September 12, 2020 Covid 19 negative on 09/08/20. Assessment & Plan (1) Encounter for pre-operative examination: Chart Review Chart Review: Acceptable Risk for Surgery and Patient NOT seen in Pre Admission Testing Consults Requested none History Surgery Operation Date: 09/13/20 12:50 Proposed Procedures p Right Distal Tibia Open Reduction Internal Fixation - Stephane Saeed DO Height/Weight Height: 5 ft 8 in Weight: 92.6 kg Allergies Allergy/AdvReac Type Severity Reaction Status Date / Time Penicillins Allergy Hives Verified 09/08/20 18:21 Medications Home Medications Medication Instructions Recorded Confirmed Last Taken allopurinol 300 mg PO DAILY 09/08/20 09/08/20 Unknown omeprazole 20 mg PO DAILY 09/08/20 09/08/20 Unknown Active Medications Generic Name Dose Route Start Last Admin Trade Name Freq PRN Reason Stop Dose Admin Allopurinol 300 mg 09/09/20 09:00 09/12/20 08:18 Allopurinol 300 Mg Tab PO 10/09/20 08:59 300 mg DAILY MARY Administration Aspirin 81 mg 09/10/20 17:15 09/11/20 08:09 Aspirin 81 Mg Ectab PO 10/10/20 17:14 81 mg QAM MARY Administration Ketorolac Tromethamine 30 mg 09/09/20 19:11 09/11/20 20:30 Ketorolac 30 Mg/Ml Vial IV 09/14/20 19:10 30 mg Q6H PRN Administration Pain Oxycodone HCl 5 - 10 mg 09/09/20 16:00 09/09/20 20:38 Oxycodone Hcl Ir 5 Mg Tab (Immediate Release) PO 09/23/20 15:59 10 mg Q4H PRN Administration Pain Pantoprazole Sodium 40 mg 09/11/20 09:00 09/12/20 08:18 Pantoprazole 40 Mg Tab PO 10/11/20 08:59 40 mg QAM MARY Administration Polyethylene Glycol 17 gm 09/10/20 09:00 09/12/20 08:19 Polyethylene (Miralax) 17 Gm Pack PO 10/10/20 08:59 Not Given DAILY MARY Senna/Docusate Sodium 2 tab 09/08/20 21:00 09/11/20 20:31 Docusate Sodium/Senna 50/8.6mg Tab PO 10/08/20 20:59 2 tab HS MARY Administration NPO Date Last Intake of Fluids: 09/09/20 Time Last Intake of Fluids: 00:20 Last Intake of Fluids Comment: sip with pill Date Last Intake of Solids: 09/08/20 Past Medical History Medical History GERD (gastroesophageal reflux disease) History of gout Past Family History Family History Father Colonic polyp Hypertension Diabetes Mother FH: multiple myeloma Past Surgical History Surgical History H/O chest tube placement pneumothorax as teenager Social History Smoking Status: Unknown if ever smoked Do You Dip or Chew Tobacco: No Hx Alcohol Use: No Alcohol type: beer and wine Hx Substance Use: No Physical Exam Vital Signs Last Vital Signs Temp 37.0 C 09/12/20 11:08 Pulse 65 09/12/20 11:08 Resp 18 09/12/20 11:08 BP 147/88 H 09/12/20 11:08 Pulse Ox 96 09/12/20 11:08 Testing Laboratory Results 09/11/20 09:59 09/11/20 09:59 PT 10.9 Seconds (9.0-12.0) 09/08/20 16:10 INR 1.0 (0.9-1.1) 09/08/20 16:10 APTT 25.5 Seconds (21.0-31.0) 09/08/20 16:10 Hemoglobin A1c 5.1 % (4.5-5.6) 09/09/20 03:50 Blood Type O Positive 09/08/20 20:36 Antibody Screen NEGATIVE 09/08/20 20:36 Electrocardiogram Date: 09/09/20 Findings: + NSR @ (64) and + NSST changes Chest X-Ray Date: 09/08/20 SINGLE VIEW CHEST CLINICAL HISTORY: Atypical chest pain. FINDINGS: An AP, portable, upright chest radiograph is obtained. No prior studies are available for comparison at the time of dictation. The examination is degraded by portable technique, apical lordotic positioning, and patient rotation. The cardiomediastinal silhouette is unremarkable. The lungs and pleural spaces are clear. No pneumothorax is seen. The bony thorax is grossly in tact. IMPRESSION: No active disease in the chest. ACT 112: Negative or not required by law. Electronically signed by: Juancho Gama M.D. 09/08/2020 5:02 PM Dictated: 09/08/201700Transcribed: 09/08/201700 Echocardiogram Date: 09/09/20 EF: 65-70 LV Function: normal Valvular Disease: + no significant valvular disease
--- NOTE | 2020-09-12 18:43 | Hospitalist Progress Note ---
Date of Service September 12, 2020 Assessment & Plan (1) Closed fracture of right fibula and tibia: (1) Closed fracture of right fibula and tibia: Traumatic injury leading to fall and right lower extremity fracture while Cross country skiing at [facility] pt reports he lost balance on a slop and landed on his right leg and foot pt later airlifted to [facility] RLE CT: displaced spiral fracture of the proximal to mid fibular shaft. Comminuted displaced fracture of the distal tibial metadiaphysis with intra-articular extension. Hemorrhage and soft tissue edema overlies the fracture sites. stable overall Hg stable pain well controlled for OR tomorrow continue PRN analgesics hold ASA for DVT prophylaxis in light of planned surgery (2) Abnormal ECG: per Dr. Marsh notes: EKG with T wave inversions inferior leads. No prior EKG noted in outpatient [employer] or [employer] records possible due to hypothermia ? [place]5 [place] before air medic able to evacuate him resting ECHO -normal study telemetry: no arrhythmia so far appreciate input from Cardiology--> no contraindications for surgery Full code Disposition pending will need PT/OT evaluation post surgery Admission and Anticipated Discharge Date Admission Date: September 08, 2020 Subjective ff up for R leg fracture seen resting in bed, comfortable pain on the Right Lower leg well controlled denies chest pain, dyspnea, palpitations, dizziness ambulated to the bathroom with crutches, tolerated well no other symptoms Review of Systems 2 Review of Systems: All systems reviewed & are unremarkable except as noted in Subjective Physical Exam Physical Exam: General- oriented x 3, not in distress, speaks in sentences with no effort or accessory muscle use Eyes- anicteric Neck- no JVD Lungs- clear breath sounds bilaterally, no rales/wheezes Heart- normal rate, regular rhythm; no murmurs Abdomen- normal bowel sounds, nondistended, soft, nontender Extremities- Left LE: no pretibial edema, no calf tenderness RLE: cast in place Neuro- alert, oriented x 3; no gross focal neurologic deficits Skin- warm & dry Results & Data Results & Data ([facility]) Vital Signs (Past 12 Hours) Vital Signs Temp Pulse Pulse Resp BP Pulse Ox Pulse Ox 09/12/20 15:22 72 09/12/20 15:13 37 C 76 16 130/87 96 09/12/20 11:08 37.0 C 65 18 147/88 H 96 09/12/20 08:00 49 L 98 09/12/20 07:29 36.9 C 70 18 123/77 94 (1) Closed fracture of right fibula and tibia Encounter type: initial encounter Qualified Code(s): S82.201A - Unspecified fracture of shaft of right tibia, initial encounter for closed fracture; S82.401A - Unspecified fracture of shaft of right fibula, initial encounter for closed fracture
[2020-09-12] MEDS: oxyCODONE HCL IR 5 MG TAB (IMMEDIATE RELEASE) PO PRN (20:44)
[2020-09-12] MEDS: DOCUSATE SODIUM/SENNA 50/8.6MG TAB PO SCH (20:44)
[2020-09-13] MEDS: oxyCODONE HCL IR 5 MG TAB (IMMEDIATE RELEASE) PO PRN (05:48)
[2020-09-13] MEDS: POLYETHYLENE (MIRALAX) 17 GM PACK PO SCH (08:29)
[2020-09-13] MEDS: PANTOprazole 40 MG TAB PO SCH (08:29)
[2020-09-13] MEDS ORDERED: DEXAMETHASONE SOD INJ 4 MG/ML VIAL ONE ×2 (08:56→11:32)
[2020-09-13] MEDS ORDERED: BUPIVACAINE 0.25% 30 ML VIAL ONE ×2 (08:56→12:59)
[2020-09-13] MEDS ORDERED: EPINEPHrine INJ 1 MG/ML AMP ONE (08:56)
[2020-09-13] MEDS: allopurinoL 300 MG TAB PO SCH (09:49)
[2020-09-13] MEDS ORDERED: MIDAZOLAM HCL 1 MG/ML 2ML VIAL ONE ×2 (11:32→12:26)
[2020-09-13] MEDS ORDERED: GLYCOPYRROLATE 0.2 MG/ML VIAL ONE (11:32)
[2020-09-13] MEDS ORDERED: NEOSTIGMINE METHYLSULFATE 5 MG/5 ML SYR ONE (11:32)
[2020-09-13] MEDS ORDERED: ONDANSETRON INJ 2 MG/ML 2 ML VIAL ONE ×2 (11:32→16:58)
[2020-09-13] MEDS ORDERED: fentaNYL citrate 100 MCG/2 ML VIAL ONE ×2 (11:32→15:33)
[2020-09-13] MEDS ORDERED: LIDOCAINE HCL 2% 2 ML VIAL/AMP(20MG/ML) INFIL ONE (11:32)
[2020-09-13] MEDS ORDERED: PROPOFOL IV EMULSION 10 MG/ML 20 ML VIAL IV ONE ×2 (11:32→16:58)
[2020-09-13] MEDS ORDERED: ONDANSETRON INJ 2 MG/ML 2 ML VIAL IV PRN (12:57)
[2020-09-13] MEDS ORDERED: ePHEDrine sulfate 50 MG/ML AMP IV PRN (12:57)
[2020-09-13] MEDS ORDERED: ATROPINE SULFATE 0.1 MG/ML 10ML SYR IV PRN (12:57)
[2020-09-13] MEDS ORDERED: fentaNYL citrate 100 MCG/2 ML VIAL IV PRN (12:57)
[2020-09-13] MEDS ORDERED: ROPIVACAINE 0.5% 5 MG/ML 30 ML VIAL ONE (12:58)
[2020-09-13] MEDS ORDERED: ceFAZolin 3000MG/72.5 ML BAG IV ONE (13:31)
--- NOTE | 2020-09-13 13:41 | History & Physical Bridge Note ---
Date of Service September 13, 2020 History & Physical Bridge Note I have examined the patient, reviewed the History & Physical and in the interval since the performance of the History & Physical I have noted the following changes of clinical significance: no changes noted
[2020-09-13] MEDS ORDERED: ESMOLOL HCL INJ 10 MG/ML 10ML VIAL IV ONE (15:53)
--- NOTE | 2020-09-13 16:25 | Fluoroscopy Report ---
FL ankle RT min 3V RTN CLINICAL HISTORY: RIGHT DISTAL TIB FIB FX COMPARISON STUDY: 09/08/2020 FLUOROSCOPY TIME: 92 seconds. NUMBER OF FLUOROSCOPIC IMAGES: 4 FINDINGS: There is been internal fixation of the spiral fracture of the distal tibial diaphysis with a medial metallic plate and multiple screws. The previously described fibular fracture is not easily visualized on this study. IMPRESSION: Fluoroscopic spot images demonstrating an internally fixated spiral fracture of the dist al tibial metaphysis ACT 112: Negative or not required by law. Electronically signed by: Jose Ramirez M.D. 09/13/2020 4:23 PM
--- NOTE | 2020-09-13 16:37 | Post Operative Brief Note ---
Immediate Post Op Note v1 Date of Surgery September 13, 2020 Pre & Post Diagnosis Operation Date: 09/13/20 12:50 Pre-Op Diagnosis: Closed displaced distal one third tibial shaft fracture; Displaced midshaft fibular fracture Post-Op Diagnosis: Closed displaced distal one third tibial shaft fracture; Displaced midshaft fibular fracture I identified the patient and participated in the time-out.: Yes Procedure Operation Date: 09/13/20 12:50 Actual Procedures p Open Reduction Internal Fixation Right displaced distal one third tibia Fracture(Right); Closed treatment midshaft fibular fracture with application splint- Stephane Saeed DO Surgeon Stephane Saeed DO Disassembler [employer] Rip Hensley PA-C Estimated Blood Loss 20 Findings Consistent with Post-Op Diagnosis Specimens None Anesthesia Type General Regional Complications none Disposition Accompanied Patient To Recovery: No Disposition: Recovery Room
--- NOTE | 2020-09-13 17:33 | Hospitalist Progress Note ---
Date of Service September 13, 2020 Assessment & Plan (1) Closed fracture of right fibula and tibia: (1) Closed fracture of right fibula and tibia: Traumatic injury leading to fall and right lower extremity fracture while Cross country skiing at [facility] pt reports he lost balance on a slop and landed on his right leg and foot pt later airlifted to [facility] RLE CT: displaced spiral fracture of the proximal to mid fibular shaft. Comminuted displaced fracture of the distal tibial metadiaphysis with intra-articular extension. Hemorrhage and soft tissue edema overlies the fracture sites. stable overall Hg stable pain well controlled for ORIF continue PRN analgesics hold ASA for DVT prophylaxis in light of planned surgery (2) Abnormal ECG: per Dr. Marsh notes: EKG with T wave inversions inferior leads. No prior EKG noted in outpatient [facility] or [employer] records possible due to hypothermia ? [place] the [place] trail [place] 1.5 hr before air medic able to evacuate him resting ECHO -normal study telemetry: no arrhythmia so far, sinus tach this morning with straining while having a BM appreciate input from Cardiology--> no contraindications for surgery Full code Disposition pending will need PT/OT evaluation post surgery Admission and Anticipated Discharge Date Admission Date: September 08, 2020 Subjective ff up for r tib/fib fracture seen resting in bed, comfortable states he feels fine overall denies chest pain, dyspnea, dizziness, palpitations Sinus tachycardia of 140s noted in back end architect Patient was in the bathroom straining with bowel movement when it occurred, denies symptoms No other symptoms Review of Systems Review of Systems: All systems reviewed & are unremarkable except as noted in Subjective Physical Exam Physical Exam: General- oriented x 3, not in distress, speaks in sentences with no effort or accessory muscle use Eyes- anicteric Neck- no JVD Lungs- clear breath sounds bilaterally, No wheezing, no crackles Heart- normal rate, regular rhythm; no murmurs Abdomen- normal bowel sounds, nondistended, soft, nontender Extremities- Right lower extremity with heavy dressing in place Lower extremity essentially normal Neuro- alert, oriented x 3; no gross focal neurologic deficits Skin- warm & dry Results & Data Results & Data ([facility]) Vital Signs (Past 12 Hours) Vital Signs Temp Pulse Pulse Pulse Pulse Resp BP 09/13/20 17:15 77 16 126/69 09/13/20 17:05 77 15 111/65 09/13/20 16:55 80 16 112/65 09/13/20 16:47 36.6 C 85 18 91/47 L 09/13/20 12:07 37.4 C 95 H 95 H 20 172/84 H 09/13/20 11:02 36.9 C 78 20 143/88 H 09/13/20 08:54 62 09/13/20 07:00 37.1 C 58 L 20 123/78 Pulse Ox 09/13/20 17:15 94 09/13/20 17:05 94 09/13/20 16:55 93 09/13/20 16:47 95 09/13/20 12:07 98 09/13/20 11:02 97 09/13/20 08:54 09/13/20 07:00 98 (1) Closed fracture of right fibula and tibia Encounter type: initial encounter Qualified Code(s): S82.201A - Unspecified fracture of shaft of right tibia, initial encounter for closed fracture; S82.401A - Unspecified fracture of shaft of right fibula, initial encounter for closed fracture
--- NOTE | 2020-09-13 17:41 | Anesthesiology Progress Note ---
Date of Service September 13, 2020 Anesthesia Post Procedure Vital Signs Vital Signs: Temp Pulse Pulse Pulse Pulse Resp BP 09/13/20 17:25 36.9 C 91 H 17 122/64 09/13/20 17:15 77 16 126/69 09/13/20 17:05 77 15 111/65 09/13/20 16:55 80 16 112/65 09/13/20 16:47 36.6 C 85 18 91/47 L 09/13/20 12:07 37.4 C 95 H 95 H 20 172/84 H 09/13/20 11:02 36.9 C 78 20 143/88 H 09/13/20 08:54 62 09/13/20 07:00 37.1 C 58 L 20 123/78 09/13/20 03:00 36.9 C 53 L 20 136/80 09/12/20 23:00 37.1 C 69 20 128/79 09/12/20 22:20 59 L 09/12/20 19:16 37.2 C 73 16 151/86 H Pulse Ox 09/13/20 17:25 96 09/13/20 17:15 94 09/13/20 17:05 94 09/13/20 16:55 93 09/13/20 16:47 95 09/13/20 12:07 98 09/13/20 11:02 97 09/13/20 08:54 09/13/20 07:00 98 09/13/20 03:00 96 09/12/20 23:00 97 09/12/20 22:20 09/12/20 19:16 98 Pain Intensity Right Lower Leg: Pain Intensity: 4 Transfer of Care Handoff Completed per policy Notes Mental Status: alert / awake / arousable and participated in evaluation Patient Amnestic to Procedure: Yes Nausea / Vomiting: adequately controlled Pain: adequately controlled Airway Patency, RR, SpO2: stable & adequate BP & HR: stable & adequate Hydration State: stable & adequate Anesthetic Complications: no major complications apparent and Pt Satisfied with anesthetic care
[2020-09-13] MEDS ORDERED: NO NSAIDS SCH (17:42)
[2020-09-13] MEDS ORDERED: METOCLOPRAMIDE HCL INJ 5 MG/ML 2 ML VIAL IV PRN (17:42)
[2020-09-13] MEDS ORDERED: diphenhydrAMINE Capsule 25 MG CAP PO PRN (17:42)
[2020-09-13] MEDS ORDERED: TAMSULOSIN HCL 0.4 MG CAP PO PRN (17:42)
[2020-09-13] MEDS ORDERED: HYDROmorphone INJ 0.5 MG/0.5 ML SYR IV PRN (17:42)
[2020-09-13] MEDS ORDERED: NALOXONE HCL 0.4 MG/1 ML VIAL/CARP IV PRN (17:42)
--- NOTE | 2020-09-13 17:45 | Operative Report (OR) ---
DATE OF OPERATION: 09/13/2020 PREOPERATIVE DIAGNOSES: 1. Right closed displaced distal one-third tibial shaft fracture. 2. Closed displaced midshaft fibula fracture. POSTOPERATIVE DIAGNOSES: 1. Right closed displaced distal one-third tibial shaft fracture. 2. Closed displaced midshaft fibula fracture. PROCEDURE: 1. Right open reduction internal fixation displaced distal one-third tibial fracture with a Synthes locking periarticular plate and screws. 2. Closed treatment midshaft fibular fracture with application of splint. SURGEON: Stephane Saeed DO. SUPERANNUATION CLERK: Rip Hensley PA-C who was present for patient positioning, sterile prep and drape, management of retractors and instruments. He was present through the critical portions of the case including wound closure, application of sterile dressing and transport of the patient to recovery of sterile dressing and transport of the patient to recovery. ANESTHESIA: General, regional. SPECIMENS: None. DRAINS: None. COMPLICATIONS: None. BLOOD LOSS: 20 mL PERTINENT HISTORY: This is a 54-year-old gentleman who was out cross country skiing. He had his ski caught in something and fell on a forceful twisting injury to his right lower extremity. He knew that he had an obvious deformity of his limb. Unable to stand. He called 911. He was evaluated by the prehospital personnel, could not ambulate and there was concern of hyperthermia, location of the injury necessitated extrication via helicopter and because of the weather, the patient was diverted to [facility]. He was admitted to the hospital to the hospitalist service for observation after splinting by the Emergency Department. Due to the severe swelling present, surgery could not be performed until swelling abated. The patient was under observation and supervision daily by the orthopedic service until swelling had been improved and reduced appropriately. The patient is scheduled for surgery as indicated for his right closed displaced midshaft fibula fracture and his distal one-third tibia fracture. All potential risks, benefits, complications, alternatives, rehab potential for incomplete relief of symptoms, need for further surgery, DVT, PE, , persistent pain, swelling, scarring, weakness, neurovascular injury, wound complications, hardware failure, nonunion, malunion, bone fracture were discussed with the patient. The patient decided to proceed with the procedure as indicated. DESCRIPTION OF PROCEDURE: The patient was administered a regional anesthetic in the preoperative holding area, then taken to the operative suite, placed supine on the operating table. After review of consent and identification of proper operative site, the patient was anesthetized, LMA was placed. Tourniquet was placed high on right thigh over cast padding. Right lower extremity was then sterilely prepped and draped in usual fashion, elevated and exsanguinated with Esmarch bandage, tourniquet inflated to 350 mmHg. After surgical timeout was performed, 15 blade scalpel was used to make an incision along the medial malleolus and extending slightly proximally. The skin was then incised with a 15 blade scalpel, taking care to avoid the sensory cutaneous nerves and possible. Careful dissection was performed with tenotomy scissors down to the level of the periosteum and then a gentle skin retraction was performed with Satinder rakes. There was noted to be a fracture blister on the distal medial aspect of the lower extremity. Care was taken to avoid this area after the fracture blister been ruptured and painted with Betadine. The saphenous vein was retracted and protected with Satinder rakes and then subperiosteal dissection was performed with Narayan elevator. Next, a Synthes locking periarticular plate was locked to the insertion guide. This was then slid in a subperiosteal fashion to the shaft of the tibia. The displacement of the fracture was significant. Therefore, manual traction was applied gently to the foot and ankle and 2 small stab incisions were made with 15 blade scalpel medial and lateral aspects of the fracture and under direct fluoroscopic assistance use of the traction and the Gillette reduction tong was then used to percutaneously improve the alignment of the tibial fracture. Next, the distal aspect of the plate was then firmly affixed with a nonlocking screw to the medial malleolus just slightly proximal at appropriate location for plating. Further traction was applied and the fracture was then slowly reapproximated in a near anatomic fixation with the reduction forceps. Next, the plate was fixed proximally with a guide pin percutaneously placed through the stab incision with a 15 blade scalpel. Next, the distal aspect of the plate was then firmly locked to the distal tibia. After multiple fluoroscopic images were obtained, AP, lateral and oblique views, noting near anatomic reduction and stabilization. Next, a plate was used as a reduction tool to reduce the fracture fragment further using a nonlocking screw in the distal fragment followed by improvement in alignment and then eventually all percutaneous locking screws were placed using standard percutaneous technique using 15 blade scalpel. Hemostat and a screw in drill guides into the plate. Once the plate was firmly affixed to the fracture fragments with multiple locking bone screws, the insertion jig and alignment jig was then removed. The construct was tested for stability and noted to be in near anatomic reduction and fixation in multiple fluoroscopic views. The fibula was then viewed and under stress and noted that it was stable; therefore, not requiring any open intervention. Therefore, closed treatment was then performed of the midshaft fibula fracture. The surgical incision was then copiously irrigated with sterile normal saline. The distal insertion site incision was then closed using buried interrupted 2-0 Vicryl to reapproximate the fascia over the plate followed by closure of the dermis with buried interrupted 3-0 Vicryl. Next, multiple percutaneous incisions were then closed using buried interrupted 3-0 Vicryl and then 4-0 nylon sutures. A copious flush was performed prior to closure with sterile normal saline until clear. Next, a sterile compressive dressing was applied consisting of Xeroform gauze over the fracture blisters and the surgical incisions followed by application 4 x 4's, cast padding and then a posterior plaster splint with a stirrup was applied overwrapped with an Vivek wrap. The tourniquet was released. The patient was awakened, normal hyperemic response returned to the toes. The patient was then transported to recovery in stable condition. I attest to the content of the Intraoperative Record and any orders documented therein. Any exception s are noted below.
[2020-09-13] MEDS: SODIUM CHLORIDE 0.9% 1000ML 1,000 ML IV SCH (17:56)
[2020-09-13] MEDS: ASPIRIN 81 MG ECTAB PO SCH (21:09)
[2020-09-13] MEDS: SENNA 8.6 MG TAB PO SCH (21:09)
[2020-09-13] MEDS: DOCUSATE SODIUM 100 MG CAP PO SCH (21:10)
[2020-09-13] MEDS: ceFAZolin 2000MG 2,000 MG/15 ML SYR IV SCH (21:16)
[2020-09-14] MEDS: SODIUM CHLORIDE 0.9% 1000ML 1,000 ML IV SCH (03:51)
[2020-09-14] MEDS: ceFAZolin 2000MG 2,000 MG/15 ML SYR IV SCH (05:36)
[2020-09-14] MEDS: oxyCODONE HCL IR 5 MG TAB (IMMEDIATE RELEASE) PO PRN ×5 (05:42→21:59)
[2020-09-14 05:45] LABS: Hematocrit (blood only) 33.3 % (42-52); Hemoglobin 11.8 g/dL (14.0-18.0); Mean Corpuscular Hemoglobin 31.1 pg (25-34); Mean Corpuscular Hgb Conc 35.4 g/dL (32-36); Mean Corpuscular Volume 87.6 fL (80-100); Mean Platelet Volume 10.3 fL (7.4-10.4); Platelet Count 222 K/uL (130-400); RDW Coefficient of Variation 13.1 % (11.5-14.5); RDW Standard Deviation 41.8 fL (36.4-46.3); White Blood Count 10.27 K/uL (4.8-10.8)
[2020-09-14 06:20] LABS: Calcium 8.6 mg/dl (8.5-10.1); Creatinine Clr Calc Pharmacy 90.1 ml/min; Est GFR (African American) 92.4; Est GFR (Non-African American) 79.7
[2020-09-14] MEDS ORDERED: KETOROLAC 30 MG/ML VIAL IV ONE (07:49)
[2020-09-14] MEDS ORDERED: HYDROmorphone INJ 0.5 MG/0.5 ML SYR IV STA (07:49)
[2020-09-14] MEDS: DOCUSATE SODIUM 100 MG CAP PO SCH ×2 (08:16→20:44)
[2020-09-14] MEDS: ACETAMINOPHEN 500 MG TAB PO SCH ×3 (08:16→20:03)
[2020-09-14] MEDS: MULTIVITAMIN TAB PO SCH (08:17)
[2020-09-14] MEDS: POLYETHYLENE (MIRALAX) 17 GM PACK PO SCH (08:17)
[2020-09-14] MEDS: PANTOprazole 40 MG TAB PO SCH (08:17)
[2020-09-14] MEDS: allopurinoL 300 MG TAB PO SCH (08:17)
[2020-09-14] MEDS: ASPIRIN 81 MG ECTAB PO SCH ×2 (08:18→20:44)
--- NOTE | 2020-09-14 09:10 | Orthopedic Progress Note ---
Date of Service September 14, 2020 Assessment & Plan (1) Closed fracture of right fibula and tibia: Continue right lower extremity NWB. Use of brace and crutches. Discussed f/u visit with Dr. Saeed/Rip at [facility] in 10-14 days. [id number] Pt would like to try and go home today which is reasonable if okay from medicine standpoint. Ortho will sign off for now. Admission and Anticipated Discharge Date Admission Date: September 08, 2020 Subjective s/p right orif tib fracture. Patient resting in bed, pain is controlled at this time but notes he had some pain while block was wearing off. Denies CP, SOB, dizziness. Physical Exam Physical Exam: right Lower extremity in splint. Toes mobile. NVI. Denies calf pain b/l. Results & Data ([facility]) Vital Signs (Past 12 Hours) Vital Signs Temp Pulse Pulse Resp BP BP Pulse Ox 09/14/20 07:00 37.0 C 70 20 149/89 H 153/78 H 98 09/14/20 03:47 37.2 C 99 H 20 119/70 96 09/13/20 23:07 105 H 09/13/20 23:00 37 C 93 H 20 138/76 94 09/13/20 21:15 36.6 C 95 H 20 151/85 H 93 (1) Closed fracture of right fibula and tibia Encounter type: initial encounter Qualified Code(s): S82.201A - Unspecified fracture of shaft of right tibia, initial encounter for closed fracture; S82.401A - Unspecified fracture of shaft of right fibula, initial encounter for closed fracture
[2020-09-14] MEDS ORDERED: KETOROLAC 30 MG/ML VIAL IV PRN (17:19)
--- NOTE | 2020-09-14 17:25 | Hospitalist Progress Note ---
Date of Service September 14, 2020 Assessment & Plan (1) Closed fracture of right fibula and tibia: (1) Closed fracture of right fibula and tibia: Traumatic injury leading to fall and right lower extremity fracture while Cross country skiing at [facility] pt reports he lost balance on a slop and landed on his right leg and foot pt later airlifted to [facility] RLE CT: displaced spiral fracture of the proximal to mid fibular shaft. Comminuted displaced fracture of the distal tibial metadiaphysis with intra-articular extension. Hemorrhage and soft tissue edema overlies the fracture sites. Status post ORIF 09/13/2020 stable overall Hg stable pain well controlled continue PRN analgesics Aspirin twice daily for DVT prophylaxis per Ortho PT/OT evaluation recommending return to home Possible discharge tomorrow Follow-up with [facility] in 10 days (2) Abnormal ECG: per Dr. Marsh notes: EKG with T wave inversions inferior leads. No prior EKG noted in outpatient [facility] or [facility] records possible due to hypothermia ? [place].5 [place] before air medic able to evacuate him resting ECHO -normal study telemetry: no arrhythmia so far, sinus tach this morning with straining while having a BM appreciate input from Cardiology--> no contraindications for surgery Noted to have nonsustained V. tach of 8 beats, and 4 seconds of atrial tach Asymptomatic Continue to monitor Full code Disposition Anticipated discharge home tomorrow Admission and Anticipated Discharge Date Admission Date: September 08, 2020 Subjective Follow-up for right tibia-fibula fracture, status post ORIF Patient was very significant pain early in the morning Improved with additional Toradol, Dilaudid IV, Tylenol p.o. Seen resting in bed, sitting up, not in distress States pain has improved to 3 out of 10 Denies headache, chest pain cultures with ambulation, dizziness, nausea vomiting, abdominal pain No other symptom Review of Systems Review of Systems: All systems reviewed & are unremarkable except as noted in Subjective Physical Exam Physical Exam: General- oriented x 3, not in distress, speaks in sentences with no effort or accessory muscle use Eyes- anicteric Neck- no JVD Lungs- clear breath sounds bilaterally Heart- normal rate, regular rhythm; no murmurs Abdomen- normal bowel sounds, nondistended, soft, nontender Extremities-left lower extremity: No pretibial edema, no calf tenderness Right lower extremity: Splint in place, no swelling of the toes Neuro- alert, oriented x 3; no gross focal neurologic deficits Skin- warm & dry Results & Data Results & Data ([facility]) Vital Signs (Past 12 Hours) Vital Signs Temp Pulse Pulse Resp BP BP Pulse Ox 09/14/20 14:52 36.9 C 61 20 147/79 H 95 09/14/20 11:41 36.9 C 86 22 132/79 96 09/14/20 08:00 95 H 09/14/20 07:00 37.0 C 70 20 149/89 H 153/78 H 98 Laboratory Results Laboratory Results - last 24 hr 09/14/20 09/14/20 05:19 05:19 WBC 10.27 RBC 3.80 L Hgb 11.8 L Hct 33.3 L MCV 87.6 MCH 31.1 MCHC 35.4 RDW Std Deviation 41.8 RDW Coeff of Tristan 13.1 Plt Count 222 MPV 10.3 Sodium 140 Potassium 4.0 Chloride 110 H Carbon Dioxide 24 Anion Gap 6.0 BUN 21 H Creatinine 1.06 Est Cr Clr Drug Dosing 90.1 Est GFR ( Amer) 92.4 Est GFR (Non-Af Amer) 79.7 BUN/Creatinine Ratio 20.0 Glucose 104 H Calcium 8.6 (1) Closed fracture of right fibula and tibia Encounter type: initial encounter Qualified Code(s): S82.201A - Unspecified fracture of shaft of right tibia, initial encounter for closed fracture; S82.401A - Unspecified fracture of shaft of right fibula, initial encounter for closed fracture
[2020-09-14] MEDS: SENNA 8.6 MG TAB PO SCH (20:44)
[2020-09-15] MEDS: ACETAMINOPHEN 500 MG TAB PO SCH ×2 (01:39→08:54)
[2020-09-15] MEDS: oxyCODONE HCL IR 5 MG TAB (IMMEDIATE RELEASE) PO PRN ×3 (01:40→09:32)
[2020-09-15 07:24] LABS: BUN Creatinine Ratio 22.3 (10-20); Calcium 8.3 mg/dl (8.5-10.1); Creatinine Clr Calc Pharmacy 91.7 ml/min; Est GFR (African American) 93.5; Est GFR (Non-African American) 80.7; Magnesium 2.4 mg/dl (1.8-2.4); Potassium 4.2 mmol/L (3.5-5.1)
[2020-09-15] MEDS: POLYETHYLENE (MIRALAX) 17 GM PACK PO SCH (08:54)
[2020-09-15] MEDS: allopurinoL 300 MG TAB PO SCH (08:54)
[2020-09-15] MEDS: MULTIVITAMIN TAB PO SCH (08:55)
[2020-09-15] MEDS: PANTOprazole 40 MG TAB PO SCH (08:55)
[2020-09-15] MEDS: DOCUSATE SODIUM 100 MG CAP PO SCH (08:55)
--- NOTE | 2020-09-15 09:22 | Hospitalist Progress Note ---
Date of Service September 15, 2020 Assessment & Plan (1) Closed fracture of right fibula and tibia: (1) Closed fracture of right fibula and tibia: Traumatic injury leading to fall and right lower extremity fracture while Cross country skiing at [facility] pt reports he lost balance on a slop and landed on his right leg and foot pt later airlifted to [facility] RLE CT: displaced spiral fracture of the proximal to mid fibular shaft. Comminuted displaced fracture of the distal tibial metadiaphysis with intra-articular extension. Hemorrhage and soft tissue edema overlies the fracture sites. Status post ORIF 09/13/2020 stable overall Hg stable pain well controlled continue PRN analgesics discussed with Ortho, ok to start Lovenox 40mg SC daily for DVT prophylaxis PT/OT evaluation recommending return to home [facility] (2) Abnormal ECG: per Dr. Marsh notes: EKG with T wave inversions inferior leads. No prior EKG noted in outpatient [facility] or [employer] records possible due to hypothermia ? [place]5 [place] before air medic able to evacuate him resting ECHO -normal study telemetry: no arrhythmia so far, sinus tach this morning with straining while having a BM appreciate input from Cardiology--> no contraindications for surgery 09/14/20 Noted to have nonsustained V. tach of 8 beats, and 4 seconds of atrial tach Asymptomatic further work up, management and follow up as outpatient Full code Disposition Discharge to home today ff up with Ortho in 10 days ff up with PCP in 1-2 weeks Admission and Anticipated Discharge Date Admission Date: September 08, 2020 Subjective ff up for r tib/fib fracture seen resting in bed, sitting up, comfortable states he feels much better overall RLE pain adequately controllled no headache, dizziness, chest pain, palpitations, dizziness no abdominal pain, nausea/vomiting ambulating with no problems no other symptoms Review of Systems Review of Systems: All systems reviewed & are unremarkable except as noted in Subjective Physical Exam Physical Exam: General- oriented x 3, not in distress, speaks in sentences with no effort or accessory muscle use Eyes- anicteric Neck- no JVD Lungs- clear breath sounds bilaterally Heart- normal rate, regular rhythm; no murmurs Abdomen- normal bowel sounds, nondistended, soft, nontender Extremities- RLE: splint in place LLE: no pretibial edema, no calf tenderness Neuro- alert, oriented x 3; no gross focal neurologic deficits Skin- warm & dry Results & Data Results & Data ([facility]) Vital Signs (Past 12 Hours) Vital Signs Temp Pulse Pulse Resp BP Pulse Ox 09/15/20 07:39 37.0 C 64 18 129/83 96 09/15/20 07:00 68 09/15/20 03:48 36.8 C 52 L 18 111/70 96 09/14/20 23:00 36.9 C 71 20 121/76 98 09/14/20 22:20 66 Laboratory Results Laboratory Results - last 24 hr 09/15/20 06:37 Sodium 140 Potassium 4.2 Chloride 110 H Carbon Dioxide 27 Anion Gap 3.0 BUN 23 H Creatinine 1.05 Est Cr Clr Drug Dosing 91.7 Est GFR ( Amer) 93.5 Est GFR (Non-Af Amer) 80.7 BUN/Creatinine Ratio 22.3 H Glucose 85 Calcium 8.3 L Magnesium 2.4 (1) Closed fracture of right fibula and tibia Encounter type: initial encounter Qualified Code(s): S82.201A - Unspecified fracture of shaft of right tibia, initial encounter for closed fracture; S82.401A - Unspecified fracture of shaft of right fibula, initial encounter for closed fracture
[2020-09-15] MEDS ORDERED: ENOXAPARIN INJ 40 MG/0.4 ML SYR SQ SCH (09:30)
--- NOTE | 2020-09-15 09:37 | Discharge Summary ---
Date of Service September 15, 2020 Admission HPI Per Admitting Provider Pt is 54 y/o M with PMH gout presented to ER with c/o right leg pain. Pt was cross country skiing today when he fell inuring right leg. he was unable to ambulate. Pt reports lying in snow for approx 1.5 hours prior to EMS arrival. Pt reports significant leg pain and had some nausea with the pain. Also c/o shaking/shivering. EMS concerned with leg injury and pt may develop hypothermia and transported pt by helicopter. Because of inclement weather pt brought to [facility]. Upon ER arrival pt normothermic and vitals stable. Pt denies hitting head, CP, SOB, palpitations, dizziness. Denies any other injury or complaint. In ER received pain medication and now reports pain 2/10 on pain scale. Pt is active a baseline and runs several miles a week, hikes and uses elliptical without any h/o CP or SOB. Denies fever. diaphoresis, N/V/D/C, SHOOK, dizziness, syncope, vision changes, neck pain, orthopnea, cough, sore throat, choking, otalgia, rhinorrhea, abdominal pain, paresthesias, extremity edema, rashes, urinary symptoms. Admission Exam Per Admitting Provider General: no distress, WDWN Head: normocephalic, atraumatic Eyes: PERRL, EOM's intact, conjunctiva non-injected, anicteric ENT: normal inspection external ears, nose, mucous membranes moist Neck: supple, trachea midline Lungs: clear, no respiratory distress, no wheezing/rhonchi/rales CV: RRR, no murmur, no pretibial edema to left leg noted Abd: normal BS, soft, non-tender Back: no discoloration, non-tender to palpation Ext: Right lower leg in posterior splint. brisk capillary refill and sensation to light touch intact of visible right great toe. Remaining extremities with normal appearance and ROM intact Neuro: A&O x 3, no focal deficits noted, normal affect Skin: warm, dry Principal Diagnosis RIGHT TIBIA/FIBULA FRACTURE Discharge Exam General- oriented x 3, not in distress, speaks in sentences with no effort or accessory muscle use Eyes- anicteric Neck- no JVD Lungs- clear breath sounds bilaterally Heart- normal rate, regular rhythm; no murmurs Abdomen- normal bowel sounds, nondistended, soft, nontender Extremities- RLE: splint in place LLE: no pretibial edema, no calf tenderness Neuro- alert, oriented x 3; no gross focal neurologic deficits Skin- warm & dry Discharge Data Allergies Allergy/AdvReac Type Severity Reaction Status Date / Time Penicillins Allergy Hives Verified 09/08/20 18:21 Consultations 09/08/20 17:07 Consult Orthopedic Surgery Stat 09/08/20 17:15 ED Decision to Admit Stat 09/08/20 19:43 Consult Anesthesiology Routine Consult Cardiology Routine Consult Case Management - Discharge Planning Routine Consult Orthopedic Surgery Routine 09/13/20 17:42 Consult Case Management - Discharge Planning Routine Procedures Performed Operation Date: 09/13/20 12:50 Actual Procedures p Open reduction internal rixation right displaced distal one third tibia fracture, closed treatment midshaft fibular fracture with application splint- right(Right) - Stephane Saeed DO Ordered Studies 09/08/20 17:07 CT tib/fib RT wo con Stat FINDINGS: The skeletal structures are well mineralized. There is a comminuted and displaced spiral fracture of the proximal to mid fibular shaft. There is anterior displacement of the distal fragments by up to 9 mm, as well as mild overriding of the fragments. Additionally, there is a comminuted and displaced spiral fracture of the distal tibial metadiaphysis with small displaced fragments. There is approximately 1.4 cm of lateral displacement of the distal shaft, as well as overriding of the largest fragments by at least 10 mm. There is a subtle nondisplaced vertical component of the fracture which extends inferiorly through the posterior tibial plafond with intra-articular extension. This is best seen on sagittal image #66. Imaged portions of the distal femur are intact, as are the visualized tarsal bones. The ankle mortise is maintained. There is an ankle joint effusion. Hemorrhage and soft tissue edema is seen around the fractures. No large/organized hematoma is identified. The knee joint is grossly preserved. The Achilles tendon is intact as visualized. IMPRESSION: 1. There is a displaced spiral fracture of the proximal to mid fibular shaft. 2. Comminuted displaced fracture of the distal tibial metadiaphysis with intra- articular extension as detailed above. 3. Hemorrhage and soft tissue edema overlies the fracture sites. 09/13/20 12:50 FL ankle RT min 3V RTN Routine FL fluoroscopy <1hr Routine 09/13/20 12:56 US - OR guided needle placemen Routine Hospital Course (1) Closed fracture of right fibula and tibia: (1) Closed fracture of right fibula and tibia: Traumatic injury leading to fall and right lower extremity fracture while Cross country skiing at [facility] pt reports he lost balance on a slop and landed on his right leg and foot pt later airlifted to [facility] RLE CT: displaced spiral fracture of the proximal to mid fibular shaft. Comminuted displaced fracture of the distal tibial metadiaphysis with intra-articular extension. Hemorrhage and soft tissue edema overlies the fracture sites. Status post ORIF 09/13/2020 stable overall Hg stable pain well controlled continue PRN Oxycodone and Tylenol discussed with Ortho, ok to start Lovenox 40mg SC daily for DVT prophylaxis PT/OT evaluation recommending return to home Follow-up with [facility] in 10 days (2) Abnormal ECG: per Dr. Marsh notes: EKG with T wave inversions inferior leads. No prior EKG noted in outpatient [employer] records possible due to hypothermia ? pt [place] on the ski trail [place] 1.5 hr before air medic able to evacuate him resting ECHO -normal study appreciate input from Cardiology--> no contraindications for surgery 09/14/20 Noted to have nonsustained V. tach of 8 beats, and 4 seconds of atrial tach Asymptomatic further work up, management and follow up as outpatient Disposition Discharge to home today ff up with Ortho ff up with PCP in 1-2 weeks Total Time Total Time Spent Total Time Spent (In Minutes): 40 minutes Discharge Plan Discharge Items Patient Disposition: Home - Self-Care Reason For Visit: TIB, FIB FRACTURE Discharge Diagnosis: RIGHT TIBIA AND FIBULA FRACTURE S/P OPEN REDUCTION, INTERNAL FIXATION S/P SPLINT PLACEMENT Condition on Discharge: Good Activity: Resume your previous activity Activity Comment: GRADUALLY TOLERATED Lifting: Wait until after follow-up appointment Driving/Machine Use: NO DRIVING UNTIL ALLOWED BY ORTHOPEDIC SERVICE Weightbearing: Right non-weightbearing Non-emergency contact: Primary Care Provider and Surgeon Call non-emergency contact if: you have any medication questions, your symptoms worsen, your pain is not controlled, your pain is worsening, your pain is unusual for you, your pain is concerning for you and you have a fever Follow-up/Referrals: Stephane Saeed DO [Surgeon] - (Call to schedule follow-up for [address]op[address] MD [Primary Care Provider] - Diet: Heart Healthy Addtl Attending Provider Instructions: PLEASE REVIEW YOUR NEW MEDICATION LIST AND FOLLOW INSTRUCTIONS CAREFULLY. YOUR NEW MEDICATIONS INCLUDE: LOVENOX INJECTION- blood thinner for blood clot prevention OXYODONE, TYLENOL- for pain control MIRALAX, SENOKOT S- stool softeners Addtl [employer] Provider Instructions: ACTIVITY RECOMMENDATIONS: Limitations: No weight bearing to affected limb at all times. SPECIAL CARE INSTRUCTIONS: * Some drainage onto the dressing is normal and is no cause for alarm. * Some swelling is natural especially after walking. * When resting, keep your foot elevated above the level of your heart. * Call [facility] if you notice: -Increased drainage -Fever over 101 degrees F -Severe constant pain BANDAGE: * Leave bandage/cast in place unless otherwise directed. * Keep bandage/cast dry at all times. FOLLOW UP VISIT WITH DR. SAEED If appointment is not already scheduled: Please call [facility] after you get home today to schedule a follow-up appointment for [address] Saeed at . Pending Studies at Discharge: No Stand-Alone Forms: My [facility] [employer], Smoking Cessation Medications and DC Order Prescriptions: New enoxaparin 40 mg/0.4 mL Syringe 40 mg subcut QAM 30 Days Qty: 12 RF: 0 acetaminophen 500 mg Tablet 500 mg PO QID PRN (Reason: fever or pain) Qty: 20 RF: 0 oxycodone 5 mg Tablet 5 - 10 mg PO Q4H PRN (Reason: pain) Qty: 20 RF: 0 polyethylene glycol 3350 [Miralax] 17 gram Powder In Packet 17 g PO DAILY Qty: 14 RF: 0 sennosides-docusate sodium [Senokot-S] 8.6-50 mg tablet 1 tab-cap PO DAILY Qty: 14 RF: 0 Continued allopurinol 300 mg tablet 300 mg PO DAILY RF: 0 omeprazole 20 mg Tablet,Delayed Release (Dr/Ec) 20 mg PO DAILY RF: 0 Discharge Orders: Discharge Order (Routine); Ordered 01/31/21 Ordered By: Codey Wren Admission Data Admit Date/Time: 09/08/20 17:41 Attending Provider: Codey Wren Admit Provider: Laura Aquino I. Primary Care Provider: Abdulkadir Way Other Providers: Stephane Saeed ; Veronica Marsh ; Laura Aquino I. ; David Johnson ; Ibrahima Wilson Other Interventions: Discharge Summary Assessment (RN) Last Done: 09/15/20 10:29
== END 2020-09-15 11:31 | disposition home or self-care (01) | DRG 493 ==
LOC: ED 15:45 → 2N 17:41 → SUATTDRO 17:41 → 2N 19:15